=== PATIENT | male | born 2000 | race African-American/Black ===

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

== ENCOUNTER → 2020-01-20 | Outpatient (CLI) | payer OTHER ==
[2019-12-24 12:12] VITALS: BP 127/80
[~2020-01-20] MED LIST changes: +AMOX1TAB61 PO; +PRED20TA PO
[2020-01-20 11:03] LABS: BASO % 0 % (0-3); EOS # 0.2 x10^3/uL (0.0-0.7); EOS % 3 % (0-3); HEMATOCRIT 47.3 % (39.0-53.0); HEMOGLOBIN 15.6 g/dL (13.0-17.5); LYMPH # 1.8 x10^3/uL (1.0-4.8); LYMPH % 39 % (24-48); MEAN CORPUSCULAR HEMOGLOBIN 29 pg (25-35); MEAN CORPUSCULAR HGB CONC 33 g/dL (31-37); MEAN CORPUSCULAR VOLUME 89 fL (79-100); MONO # 0.4 x10^3/uL (0.0-1.1); MONO % 8 % (0-9); NEUT # 2.3 x10^3uL (1.8-7.7); NEUT % 49 % (31-73); PLATELET COUNT 170 x10^3/uL (140-400); RED CELL DISTRIBUTION WIDTH 12.9 % (11.5-14.5); WHITE BLOOD COUNT 4.7 x10^3/uL (4.0-11.0)
[2020-01-20 11:20] LABS: ALBUMIN 4.3 g/dL (3.4-5.0); ALBUMIN/GLOBULIN RATIO 1.2 (1.0-1.7); CALCIUM 9.2 mg/dL (8.5-10.1); CREATININE 1.1 mg/dL (0.7-1.3); GFR 104.3; POTASSIUM 3.9 mmol/L (3.5-5.1); TOTAL BILIRUBIN 0.6 mg/dL (0.2-1.0); TOTAL PROTEIN 7.9 g/dL (6.4-8.2)
--- NOTE | 2020-01-20 11:37 | RAD ---
EXAM: Abdomen sonogram. HISTORY: Pain. TECHNIQUE: Sonographic imaging of the abdomen was performed. COMPARISON: None. FINDINGS: The liver is normal in size. No focal hepatic lesion is seen. The common bile duct is normal in caliber. The gallbladder is unremarkable. The right kidney, inferior vena cava and visualized portions of the pancreas are unremarkable. There is no free fluid. IMPRESSION: 1. No acute sonographic finding. 2. Limited evaluation of the midline structures due to bowel gas. Electronically signed by: Gali Doyle MD (01/20/2020 11:34 AM) [id number]
[2020-01-20 13:25] LABS: BACTERIA,URINE 0 /HPF (0-FEW); BILIRUBIN,URINE NEG (NEG); CLARITY,URINE CLEAR; COLOR,URINE YELLOW; GLUCOSE,URINE NEG (NEG); NITRITE,URINE NEG (NEG); RBC,URINE 0 /HPF (0-2); WBC,URINE OCC /HPF (0-4)
== END ==
LOC: LAB 10:00
PROVIDERS: ATTEND Pediatrics
DX: R10.11 Right upper quadrant pain (principal)
CPT/HCPCS: 36415; 76705; 80053; 81001; 82150; 83690; 85025

== ENCOUNTER → 2020-02-08 | Outpatient (CLI) | payer OTHER ==
--- NOTE | 2020-02-08 15:32 | RAD ---
KNEE RIGHT 3V, RIGHT FEMUR XRAY DATE: 02/08/2020 12:00 AM INDICATION: LEG PAIN, COUCH FELL ON 02/04/20 / Spl. Instructions: / History: COMPARISON: None. FINDINGS: Bones: There is no evidence of acute fracture or dislocation. Joints: The joint spaces are normal. There is no joint effusion. Miscellaneous: None. IMPRESSION: No evidence of acute fracture. Electronically signed by: Sanya Russ MD (02/08/2020 3:28 PM) [id number]
== END ==
LOC: DXRAD 14:30
PROVIDERS: ATTEND Pediatrics
DX: M25.561 Pain in right knee (principal); W19.XXXA Unspecified fall, initial encounter; Y93.89 Activity, other specified; Y92.89 Other specified places as the place of occurrence of the external cause; Y99.8 Other external cause status
CPT/HCPCS: 73552; 73562

== ENCOUNTER 2020-02-10 16:00 | Emergency (ER) | payer OTHER ==
[~2020-02-10] VITALS: Ht 170.2 cm; Wt 64.0 kg
[2020-02-10 16:12] VITALS: BP 116/89
--- NOTE | 2020-02-10 16:41 | RAD ---
Exam: Right femur 2 views. Pelvis one view INDICATION: Right-sided pain TECHNIQUE: Frontal and lateral views of the right femur. Frontal view of the pelvis Comparisons: None FINDINGS: Femur: Bone mineralization is normal. No acute or healed fractures. Soft tissues are unremarkable. Joint spaces are well-maintained. Pelvis: Bone mineralization is normal. No acute or healed fractures. Soft tissues are unremarkable. Joint spaces are well-maintained. IMPRESSION: No acute osseous abnormality of the pelvis and right femur. Electronically signed by: Zachary Fowler MD (02/10/2020 4:38 PM) CHRISTIE
--- NOTE | 2020-02-10 16:44 | RAD ---
Exam: Chest one view INDICATION: Right thigh pain TECHNIQUE: Frontal view of the chest Comparisons: None FINDINGS: The cardiomediastinal silhouette and pulmonary vessels are within normal limits. The lung and pleural spaces are clear. IMPRESSION: No acute cardiopulmonary process. Electronically signed by: Zachary Fowler MD (02/10/2020 4:41 PM) CHRISTIE
--- NOTE | 2020-02-10 16:54 | RAD ---
Exam: CT head and cervical spine without contrast INDICATION: Headache, neck pain TECHNIQUE: Sequential axial images through the head and cervical spine were obtained without the administration of IV contrast. Comparisons: 10/24/2018 FINDINGS: Head: No focal parenchymal lesion or hemorrhage is identified. There is no midline shift or sulcal effacement. No acute vascular territory infarction is identified. Garcia-white distinction is preserved. The ventricular system is within normal limits without compression hydrocephalus. The basal cisterns are well maintained. The visualized portions of the paranasal sinuses and mastoid air cells are well-pneumatized. No acute fractures. Cervical spine: Vertebral body heights and alignment are well-maintained. Fracture to the cervical spine is not identified. No significant spondylotic change in cervical spine Visualized paraspinal soft tissues are unremarkable. IMPRESSION: 1. No acute intracranial abnormality. 2. Negative CT traumatic injury. Exposure: One or more of the following in the visualized dose reduction techniques were utilized for this examination: 1. Automated exposure control 2. Adjustment of the MA and/or KV according to patient size Use of iterative of reconstructive technique Electronically signed by: Zachary Fowler MD (02/10/2020 4:51 PM) BRIELLE
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
== END 2020-02-10 17:40 | disposition home or self-care (01) ==
LOC: ER 16:00
DX: M54.2 Cervicalgia (principal); M79.652 Pain in left thigh; J45.909 Unspecified asthma, uncomplicated; Y08.89XA Assault by other specified means, initial encounter; Y93.89 Activity, other specified; Y92.89 Other specified places as the place of occurrence of the external cause; Y99.8 Other external cause status
CPT/HCPCS: 70450; 71045; 72125; 72170; 73552; 99285

== ENCOUNTER 2020-02-27 20:08 | Emergency (ER) | payer OTHER ==
[~2020-02-27] VITALS: Ht 170.2 cm; Wt 64.0 kg
[2020-02-27 20:13] VITALS: BP 121/67
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
[2020-02-27] MEDS ORDERED: LORazepam 1 MG TABLET PO ONE (20:45)
== END 2020-02-27 21:31 | disposition home or self-care (01) ==
LOC: ER 20:08
DX: F41.9 Anxiety disorder, unspecified (principal); J45.909 Unspecified asthma, uncomplicated
CPT/HCPCS: 99283

== ENCOUNTER 2020-03-11 09:55 | Emergency (ER) | payer OTHER ==
[~2020-03-11] VITALS: Ht 170.2 cm; Wt 64.0 kg
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
--- NOTE | 2020-03-11 10:11 | EKG ---
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
[2020-03-11 10:24] VITALS: BP 134/63
[2020-03-11 10:33] LABS: BASO % 1 % (0-3); EOS # 0.2 x10^3/uL (0.0-0.7); EOS % 5 % (0-3); HEMATOCRIT 44.5 % (39.0-53.0); HEMOGLOBIN 14.7 g/dL (13.0-17.5); LYMPH # 1.4 x10^3/uL (1.0-4.8); LYMPH % 34 % (24-48); MEAN CORPUSCULAR HEMOGLOBIN 29 pg (25-35); MEAN CORPUSCULAR HGB CONC 33 g/dL (31-37); MEAN CORPUSCULAR VOLUME 89 fL (79-100); MONO # 0.3 x10^3/uL (0.0-1.1); MONO % 8 % (0-9); NEUT # 2.2 x10^3uL (1.8-7.7); NEUT % 53 % (31-73); PLATELET COUNT 148 x10^3/uL (140-400); RED BLOOD COUNT 5.03 x10^6/uL (4.30-5.70); RED CELL DISTRIBUTION WIDTH 13.2 % (11.5-14.5); WHITE BLOOD COUNT 4.1 x10^3/uL (4.0-11.0)
[2020-03-11 10:42] LABS: CALCIUM 8.8 mg/dL (8.5-10.1); CREATININE 0.9 mg/dL (0.7-1.3); GFR 131.5; MAGNESIUM 2.2 mg/dL (1.8-2.4); POTASSIUM 3.9 mmol/L (3.5-5.1)
== END 2020-03-11 13:03 | disposition home or self-care (01) ==
LOC: ER 09:55
DX: G40.909 Epilepsy, unspecified, not intractable, without status epilepticus (principal); R20.2 Paresthesia of skin; J45.909 Unspecified asthma, uncomplicated; Z98.890 Other specified postprocedural states
CPT/HCPCS: 36415; 80048; 83735; 85025; 93005; 99284

== ENCOUNTER 2020-03-13 16:49 | Emergency (ER) | payer OTHER ==
[~2020-03-13] VITALS: Ht 172.7 cm; Wt 63.0 kg
[2020-03-13 16:56] VITALS: BP 122/59
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
[2020-03-13] MEDS ORDERED: ONDA4TAB7 PO (17:56)
[2020-03-13] MEDS ORDERED: ONDANSETRON PF 4 MG/2 ML VIAL. IVP ONE (18:00)
[2020-03-13] MEDS ORDERED: ONDANSETRON ODT 4 MG TAB.RAPDIS PO ONE (18:00)
[2020-03-13] MEDS ORDERED: LIDO:MAALOX 1:1 20 ML SINGLE DOSE. PO ONE (18:00)
== END 2020-03-13 18:05 | disposition home or self-care (01) ==
LOC: ER 16:49
DX: R56.9 Unspecified convulsions (principal); R10.9 Unspecified abdominal pain; R11.0 Nausea; Z98.890 Other specified postprocedural states
CPT/HCPCS: 99283

== ENCOUNTER 2020-03-14 19:27 | Emergency (ER) | payer OTHER ==
[~2020-03-14] VITALS: Ht 172.7 cm; Wt 63.0 kg
[~2020-03-14 19:27] MED LIST changes: +ONDA4TAB7 PO
--- NOTE | 2020-03-14 19:44 | PHYS DOC ---
Past History Past Medical History: Seizure Additional Past Medical Histor: "STRESS", SEIZURE Past Surgical History: Other Additional Past Surgical Histo: BELLY BUTTON SURGERY Smoking: Non-smoker Alcohol Use: None Drug Use: None Adult General HPI HPI Patient is a 19-year-old male who presents to the emergency room after possible reported seizure activity. Patient is a very poor historian. He has no idea when he started having seizure-like activity or if he has seen a neurologist for this. He does believe that he supposed to see a neurologist but does not know when or who recommended that he see a neurologist. Patient believes that this problem started yesterday. He states that he was very upset and had to walk away from his family to calm down. When he returned to the home he was confused and not answering questions. They believe that this was due to his seizure and sent him here. Patient also reportedly has not had anything to eat or drink for the last 12 hours. He had an initial glucose of 50. He did receive glucose in route. Patient denies any drug use. Review of Systems Review of Systems Complete ROS is negative unless otherwise documented in HPI Allergies Allergies Allergies Coded Allergies Type Severity Reaction Last Updated Verified No Known Drug Allergies 03/13/20 No Physical Exam Physical Exam General: Awake, alert, NAD. Well Nourished, well hydrated. Cooperative HEENT: Atraumatic, EOMI, PERRL, airway patent, moist oral mucosa Neck: Supple, trachea midline Respiratory: CTA bilaterally, normal effort, no wheezing/crackles CV: RRR, no murmur, cap refill <2 GI: Soft, nondistended, nontender, no masses MSK: No obvious deformities Skin: Warm, dry, intact Neuro: A&O x3,, mild confusion, speech NL, 5/5 strength in BUE/BLE distally and proximally, CN 2-12 intact, cerebellar testing normal Psych: Normal affect, normal mood, not suicidal or homicidal EKG EKG [] Radiology/Procedures Radiology/Procedures [] Heart Score Risk Factors: Risk Factors: DM, Current or recent (<one month) smoker, HTN, HLP, family history of CAD, obesity. Risk Scores: Risk Factors: DM, Current or recent (<one month) smoker, HTN, HLP, family history of CAD, obesity. Course & Med Decision Making Course & Med Decision Making Pertinent Labs and Imaging studies reviewed. (See chart for details) Patient is a 19-year-old male who presents to the emergency room after having a possible seizure. No but he reportedly saw the seizure. He has not had any seizure-like activity today. Family called because he was acting as he may have had a seizure before he came home. Patient was hypoglycemic prior to arrival. He will be fed here in the emergency room. He has been evaluated multiple times here in this emergency room for similar episodes. He has not yet followed up with a neurologist which I have recommended to him and his family. At this time patient does not need repeat lab work or a CT of his head. He has had this work-up done previously that has been normal. Patient was observed here in the emergency room did not have any further seizure activity. Patient's test results and vitals while in the ED were fully reviewed and discussed with the patient. Patient is stable and at this time does not need admission to the hospital. We have discussed strict return precautions and the importance of following up with their Primary Care Physician. Patient stated understanding and was given an opportunity to ask any questions. Patient is in agreement with plan. Dragon Disclaimer Dragon Disclaimer This electronic medical record was generated, in whole or in part, using a voice recognition dictation system. Departure Departure: Impression: Primary Impression: Seizure-like activity Additional Impression: Mental status change Disposition: 01 DC HOME SELF CARE/HOMELESS Condition: STABLE Referrals: PCPELIZABETH (PCP) SRAVANI VEGA MD Patient Instructions: Hypoglycemia (Low Blood Sugar), Seizure, Adult Problem Qualifiers SENIA HERNÁNDEZ MD Mar 14, 2020 19:44
[2020-03-14 20:59] VITALS: BP 116/59
== END 2020-03-14 20:50 | disposition home or self-care (01) ==
LOC: ER 19:27
DX: R56.9 Unspecified convulsions (principal); R41.0 Disorientation, unspecified
CPT/HCPCS: 82947; 99283

== ENCOUNTER 2020-03-17 22:31 | Emergency (ER) | payer OTHER ==
[~2020-03-17] VITALS: Ht 172.7 cm; Wt 62.7 kg
--- NOTE | 2020-03-17 22:35 | PHYS DOC ---
Past History Past Medical History: Anxiety, Constipation, Seizure Additional Past Medical Histor: "STRESS", SEIZURE Past Surgical History: Other Additional Past Surgical Histo: BELLY BUTTON SURGERY Smoking: Non-smoker Alcohol Use: None Drug Use: None General Adult HPI: HPI: ".. I had a seizure..." Patient is a 19 year old male who presents with above hx and complaints of seizure like activity. Patient reportedly had a tonic-clonic seizure and a prolonged post ictal phase. Patient has had previous episodes of syncope/seizure and working with a neurologist for a med treatment program. Patient currently has no complaints. Does have previous seizure evaluations in our department one episode he was hypoglycemic below 50 and another episode he was dehydrated. Patient does have a history of developmental intellectual delay. Patient also has history of possible stress-induced seizures or an emotional component that causes her to have seizure-like activity. Patient had not been incontinent of urine or stool. Has not bit his tongue. No other injuries. No other complaints. There is some history of possible pseudoseizures in his record. Patient past follow-up with Dr. Man. No history immunosuppression. No history of travel. No specific ill contacts. Review of Systems: Review of Systems: Constitutional: Denies fever or chills Eyes: Denies change in visual acuity HENT: Denies nasal congestion or sore throat Respiratory: Denies cough or shortness of breath Cardiovascular: Denies chest pain or edema GI: Denies abdominal pain, nausea, vomiting, bloody stools or diarrhea : Denies dysuria Musculoskeletal: Denies back pain or joint pain Integument: Denies rash Neurologic: Denies headache, focal weakness or sensory changes . History of seizure-like activity Endocrine: Denies polyuria or polydipsia Lymphatic: Denies swollen glands Psychiatric: Denies depression or anxiety Family History: Family History: Noncontributory to presentation Current Medications: Current Meds: See nursing for home meds Allergies: Allergies: Allergies Coded Allergies Type Severity Reaction Last Updated Verified No Known Drug Allergies 03/13/20 No Physical Exam: PE: Constitutional: Well developed, well nourished, no acute distress, non-toxic appearance. [] HENT: Normocephalic, atraumatic, bilateral external ears normal, oropharynx moist, no oral exudates, nose normal. [] Eyes: PERRLA, EOMI, conjunctiva normal, no discharge. [] Neck: Normal range of motion, no tenderness, supple, no stridor. [] Cardiovascular:Heart rate regular rhythm, no murmur [] Lungs & Thorax: Bilateral breath sounds clear to auscultation [] Abdomen: Bowel sounds normal, soft, no tenderness, no masses, no pulsatile masses. Surgical scar mid abdomen-umbilicus area Skin: Warm, dry, no erythema, no rash. [] Back: No tenderness, no CVA tenderness. [] Extremities: No tenderness, no cyanosis, no clubbing, ROM intact, no edema. [] Neurologic: Alert and oriented X 3, normal motor function, normal sensory function, no focal deficits noted. [] DTRs +2 patella and brachial. Multimedia Services Manager equal. No drift. Sxzzfu-io-jutz good. Psychologic: Affect flat, appears to have some intellectual disabilities, mood normal. [] EKG: EKG: My interpretation EKG shows a sinus bradycardia at 59 bpm. No acute morphology [] Radiology/Procedures: Radiology/Procedures: [][address] [address] IMAGING REPORT Signed PATIENT: CRISTIAN ALVARADO RACCOUNT: [id number] : 2000 LOCATION: ER AGE: 19 SEX: M EXAM STATUS: REG ER ORD. PHYSICIAN: ELBA NOVOA MD REASON: Seizure activity, weakness PROCEDURE: PORTABLE CHEST 1V Single view chest dated 03/17/2020. Comparison made to 02/10/2020. Clinical data indication: Seizure. FINDINGS: Single upright portable exam performed. Heart and mediastinal contours are sta ble. Lungs are clear. No consolidation or pleural effusion. No pneumothorax. IMPRESSION: No acute radiographic abnormality. Electronically signed by: Frank Myers MD (03/17/2020 11:10 PM) [facility] [place] DICTATED AND SIGNED BY: FRANK MYERS MD DATE: 03/17/20 [id number] CC: ELBA NOVOA MD; PCP,NO ~MTH0 0 Heart Score: HEART Score for Chest Pain: HEART Score for Chest Pain Response (Comments) Value History Slighlty/Non-Suspicious 0 ECG Normal 0 Age < 45 0 Risk Factors No Risk Factors 0 Troponin < Normal Limit 0 Total 0 Risk Factors: Risk Factors: DM, Current or recent (<one month) smoker, HTN, HLP, family history of CAD, obesity. Risk Scores: Score 0 - 3: 2.5% MACE over next 6 weeks - Discharge Home Score 4 - 6: 20.3% MACE over next 6 weeks - Admit for Clinical Observation Score 7 - 10: 72.7% MACE over next 6 weeks - Early Invasive Strategies Course & Med Decision Making: Course & Med Decision Making Pertinent Labs and Imaging studies reviewed. (See chart for details) Patient to avoid driving or any hazardous activity where he could become injured with a seizure. Keep follow-up with primary. Keep follow-up with neurology. Return if any concerns. Push fluids. Impression:. 1. Seizure-like activity 2. Developmentally intellectual delay 3. Bradycardia [] Dragon Disclaimer: Dragon Disclaimer: This electronic medical record was generated, in whole or in part, using a voice recognition dictation system. Departure Departure: Referrals: PCP,NO (PCP) Dragon Disclaimer This chart was dictated in whole or in part using Voice Recognition software in a busy, high-work load, and often noisy Emergency Department environment. It may contain unintended and wholly unrecognized errors or omissions. Dragon Disclaimer This chart was dictated in whole or in part using Voice Recognition software in a busy, high-work load, and often noisy Emergency Department environment. It may contain unintended and wholly unrecognized errors or omissions. ELBA NOVOA MD Mar 17, 2020 22:35
[2020-03-17] MEDS ORDERED: IV RINGERS SOLUTION,LACTATED 1,000 ML IV SCH (22:45)
[2020-03-17 23:10] LABS: BASO # 0.1 x10^3/uL (0.0-0.2); BASO % 1 % (0-3); EOS # 0.4 x10^3/uL (0.0-0.7); EOS % 5 % (0-3); HEMATOCRIT 44.4 % (39.0-53.0); HEMOGLOBIN 14.7 g/dL (13.0-17.5); LYMPH # 3.6 x10^3/uL (1.0-4.8); LYMPH % 44 % (24-48); MEAN CORPUSCULAR HEMOGLOBIN 29 pg (25-35); MEAN CORPUSCULAR HGB CONC 33 g/dL (31-37); MEAN CORPUSCULAR VOLUME 89 fL (79-100); MONO # 0.5 x10^3/uL (0.0-1.1); MONO % 6 % (0-9); NEUT # 3.5 x10^3uL (1.8-7.7); NEUT % 44 % (31-73); PLATELET COUNT 163 x10^3/uL (140-400); RED BLOOD COUNT 5.01 x10^6/uL (4.30-5.70); WHITE BLOOD COUNT 8.1 x10^3/uL (4.0-11.0)
--- NOTE | 2020-03-17 23:12 | RAD ---
Single view chest dated 03/17/2020. Comparison made to 02/10/2020. Clinical data indication: Seizure. FINDINGS: Single upright portable exam performed. Heart and mediastinal contours are stable. Lungs are clear. N o consolidation or pleural effusion. No pneumothorax. IMPRESSION: No acute radiographic abnormality. Electronically signed by: Darius Myers MD (03/17/2020 11:10 PM) [facility]
[2020-03-17 23:17] LABS: CALCIUM 9.1 mg/dL (8.5-10.1); CREATININE 1.2 mg/dL (0.7-1.3); GFR 94.4; POTASSIUM 3.5 mmol/L (3.5-5.1)
[2020-03-17 23:23] LABS: DIRECT BILIRUBIN 0.1 mg/dL (0.0-0.2); MAGNESIUM 2.5 mg/dL (1.8-2.4); TOTAL BILIRUBIN 0.2 mg/dL (0.2-1.0); TOTAL PROTEIN 7.3 g/dL (6.4-8.2)
[2020-03-17 23:37] VITALS: BP 117/78
[2020-03-18 00:15] LABS: BARBITURATES NEG (NEG); BENZODIAZEPINES NEG (NEG); CANNABINOIDS NEG (NEG); COCAINE NEG (NEG); METHADONE NEG (NEG); OPIATES NEG (NEG); PHENCYCLIDINE NEG (NEG)
[2020-03-18 00:17] LABS: AMPHETAMINE/METHAMPHETAMINE NEG (NEG)
--- NOTE | 2020-03-18 04:13 | EKG ---
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
== END 2020-03-17 23:53 | disposition home or self-care (01) ==
LOC: ER 22:31
DX: G40.89 Other seizures (principal); F81.9 Developmental disorder of scholastic skills, unspecified; R00.1 Bradycardia, unspecified; F41.9 Anxiety disorder, unspecified
CPT/HCPCS: 36415; 71045; 80048; 80076; 80307; 82550; 82947; 83735; 84484; 85025; 93005; 96361; 96374; 99285; J2060; J7120

== ENCOUNTER 2020-03-18 11:50 | Emergency (ER) | payer OTHER ==
[~2020-03-18] VITALS: Ht 172.7 cm; Wt 62.7 kg
--- NOTE | 2020-03-18 13:36 | PHYS DOC ---
Past History Past Medical History: Anxiety, Constipation, Seizure Additional Past Medical Histor: "STRESS", SEIZURE Past Surgical History: Other Additional Past Surgical Histo: BELLY BUTTON SURGERY Smoking: Non-smoker Alcohol Use: None Drug Use: None Adult General Chief Complaint Chief Complaint: SEIZURE HPI HPI Patient is a 19-year-old male presents emergency department reporting that he marte d 3 seizures today just prior to arrival, patient states that he remembers being at home at approximately 11:00 today and he started shaking for approximately 1 minute and states that he got himself out of it then again he started shaking uncontrollably once again for approximately 1 minute and then again he states that he pulled himself back out of his shaking episode. Patient states that his stepmom called EMS to transfer him here to the emergency department for seizures, and when EMS arrived and started questioning him about his seizures that he started shaking once again uncontrollably but was able to pull himself back out of it once again. Patient was transferred to the emergency department via EMS. Patient's blood sugar in route reported by EMS optical designer was 58. Patient states that he is awaiting an appointment from a neurologist at [facility]. Patient states that the neurology office is supposed to call him for an appointment but has not done so yet. Patient denies any loss of bowel or bladder. Patient denies biting his tongue or his lip during his seizure. Patient denies falling or hitting his head during his seizure activity. Patient denies any other aches or pains, denies recent fever or chills, denies chest pain, denies back pain, denies chest palpitations, denies shortness of breath, denies congestion. Patient denies rashes to his skin. Patient denies nausea vomiting or abdominal pain patient denies loss of sensation to his extremities, denies numbness or tingling to his extremities. Patient denies abdominal pains, denies urinary tract infection type symptoms. Patient denies being in any prolonged postictal phase after his seizures, stating that he was able to pull himself back out of his seizure before he made it to a postictal state. Patient denies a history of cigarette smoking, denies drinking alcohol, denies illicit drug use. Patient does have a history of developmental intellectual delay, patient has been evaluated in the emergency department several times this month for seizure- like activity, patient has been encouraged to follow-up with neurology however has not followed up with neurology as of this time. 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 Patient patient has been evaluated by Dr. Man in the past, patient denies any recent travel, or any contact with individuals known to have the COVID-19 virus or other illnesses patient denies any past medical history of immunosuppression or immunosuppressive type diseases. Patient reports a past surgical history of an umbilical hernia repair when he was younger. Review of Systems Review of Systems 14 body systems of review of systems have been reviewed. See HPI for pertinent positives and negative responses, otherwise all other systems are negative, nonpertinent or noncontributory. Current Medications Current Medications Patient denies taking medications at home. Allergies Allergies Allergies Coded Allergies Type Severity Reaction Last Updated Verified No Known Drug Allergies 03/13/20 No Physical Exam Physical Exam Constitutional: Well developed, well nourished, no acute distress, non-toxic appearance. HENT: Normocephalic, atraumatic, bilateral external ears normal, oropharynx moist, no oral exudates, nose normal. Eyes: PERRLA, EOMI, conjunctiva normal, no discharge. Neck: Normal range of motion, no tenderness, supple, no stridor. Cardiovascular:Heart rate regular rhythm, no murmur Lungs & Thorax: Bilateral breath sounds clear to auscultation Abdomen: Bowel sounds normal, soft, no tenderness, no masses, no pulsatile masses. Umbilical surgical repair scar well-healed without signs of inflammation or infectious process Skin: Warm, dry, no erythema, no rash. Back: No tenderness, no CVA tenderness. Extremities: No tenderness, no cyanosis, no clubbing, ROM intact, no edema. Neurologic: Alert and oriented X 3, normal motor function, normal sensory function, no focal deficits noted. Psychologic: Patient's mood normal, affect flat, signs of intellectual developmental delay. Current Patient Data Vital Signs Vital signs during physical exam oral temp 97.8, NIBP blood pressure left upper extremity 115/56, heart rate 72 per palpation and confirmed with 5-lead bedside telemetry monitor, respirations 14 and nonlabored, oxygen saturation 100% on room air. Lab Results Laboratory Tests Test 03/18/20 12:00 03/18/20 13:40 Glucose (Fingerstick) 81 mg/dL 143 mg/dL Laboratory Tests Test 03/18/20 12:00 Glucose (Fingerstick) 81 mg/dL (70-99) EKG EKG [] Radiology/Procedures Radiology/Procedures [] Heart Score Risk Factors: Risk Factors: DM, Current or recent (<one month) smoker, HTN, HLP, family history of CAD, obesity. Risk Scores: Risk Factors: DM, Current or recent (<one month) smoker, HTN, HLP, family history of CAD, obesity. Course & Med Decision Making Course & Med Decision Making Pertinent Labs and Imaging studies reviewed. (See chart for details) 19-year-old male presents emergency department with chief complaint of seizure- like activity. Patient reported to me that he had 4 seizures before arrival to the emergency department, however EMS reported that he reported to them that he had 7 seizures today prior to them arriving further evaluation and transfer to the emergency department today. Patient was not postictal during physical exam, the patient has been seen in our facility for seizure-like activity for previous times this month. A chart review was performed, the patient denied being on any seizure medicines, however it was noted on previous admissions to the emergency department this month that he was loaded on Keppra and started on Lamictal. He has had events imaging of his head that was negative for acute process, has been recommended to both him and his family that he follow-up with a neurologist, he has not done this as of this time. His previous work-ups have been have been normal, the patient was observed here for approximately 3-1/2 hours and did not exhibit any seizure-like activity or other concerning neurological processes, vital signs remained stable throughout emergency department stay. The patient's initial blood sugar in route was 58 per EMS report, however ED nurse performed 1 upon arrival reading 81. The patient was given a meal tray to eat, and a recheck of glucose at bedside [id number] blood sugar equaled 143. Patient's physical exam was nonconcerning and does not meet admission to the hospital. Discussed with both patient and patient's stepmother that the patient needs to have an appointment with neurology. Both patient and patient's stepmother gave verbal understanding of discharge instructions, follow-up with neurology soon. Patient is agreeable with discharge to home. Patient discharged home without incident Dragon Disclaimer Dragon Disclaimer This electronic medical record was generated, in whole or in part, using a voice recognition dictation system. Departure Departure: Impression: Primary Impression: Seizure-like activity Disposition: 01 DC HOME SELF CARE/HOMELESS Condition: GOOD Referrals: PCP,NO (PCP) Additional Instructions: You have been evaluated in the emergency department several times for seizure- like activity, we have recommended that you see a neurologist soon. Please make appointment to see neurology soon for evaluation of your seizure-like activity. Please return the emergency department for worsening symptoms or other concerns. EMERGENCY DEPARTMENT GENERAL DISCHARGE INSTRUCTIONS Thank you for coming to [facility] (ED) today and trusting us with you care. We trust that you had a positivie experience in our Emergency Department. If you wish to speak to the department management, you may call the director at [phone]. YOUR FOLLOW UP INSTRUCTIONS ARE FOLLOWS: 1. Do you have a private Doctor? If you do not have a private doctor, please ask for a resource list of physicians or clinics that may be able to assist you with follow up care. 2. The Emergency Physician has interpreted your x-rays. The X-Ray specialist will also review them. If there is a change in the findings, you will be notified in 48 hours when at all possible. 3. A lab test or culture has been done, your results will be reviewed and you will be notified if you need a change in treatment. ADDITIONAL INSTRUCTIONS AND INFORMATION: 1. Your care today has been supervised by a physician who is specially trained in emergency care. Many problems require more than one evaluation for a complete diagnosis and treatment. We recommend that you schedule your follow up appointment as recommended to ensure complete treatment of you illness or injury. If you are unable to obtain follow up care and continue to have a problem, or if your condition worsens, we recommend that you return to the ED. 2. We are not able to safely determine your condition over the phone nor are we able to give sound medical advice over the phone. For these safety reasons, if you call for medical advice we will ask you to come to the ED for further evaluation. 3. If you have any questions regarding these discharge instructions please call the ED at [phone]. SAFETY INFORMATION: In the interest of safety, wellness, and injury prevention; we encourage you to wear your sealbelt, if you smoke; quite smoking, and we encourage family to use a protective helmet for bicycling and other sporting events that present an increased risk for head injury. IF YOUR SYMPTOMS WORSEN OR NEW SYMPTOMS DEVELOP, OR YOU HAVE CONCERNS ABOUT YOUR CONDITION; OR IF YOUR CONDITION WORSENS WHILE YOU ARE WAITING FOR YOUR FOLLOW UP APPOINTMENT; EITHER CONTACT YOUR PRIMARY CARE DOCTOR, THE PHYSICIAN WHOSE NAME AND NUMBER YOU WERE GIVEN, OR RETURN TO THE ED IMMEDIATELY. FRANK GALLEGOS APRN Mar 18, 2020 13:36
[2020-03-18 14:54] VITALS: BP 103/45
== END 2020-03-18 15:30 | disposition home or self-care (01) ==
LOC: ER 11:50
DX: R56.9 Unspecified convulsions (principal); R62.50 Unspecified lack of expected normal physiological development in childhood; F41.9 Anxiety disorder, unspecified
CPT/HCPCS: 82947; 99285

== ENCOUNTER 2020-03-18 20:52 | Emergency (ER) | payer OTHER ==
[~2020-03-18] VITALS: Ht 172.7 cm; Wt 62.7 kg
--- NOTE | 2020-03-18 21:06 | PHYS DOC ---
Past History Past Medical History: Anxiety, Constipation, Seizure Additional Past Medical Histor: "STRESS", SEIZURE Past Medical History Intellectual delay Past Surgical History: Other Additional Past Surgical Histo: BELLY BUTTON SURGERY Smoking: Non-smoker Alcohol Use: None Drug Use: None General Adult EDM: Chief Complaint: OTHER COMPLAINTS HPI: HPI: "I had another seizure..." Pt "He had another seizure.. it lasted over 15 minutes.. he was seen at [facility]....and they never found out why... he been to the ED a lot.. they never found anything other than he had a low sugar once and once was dehydrated.. He seen Dr. Hudson before.. and now he has an apt. with Dr Cade.. " "You espinoza s never find out why he has those seizures".. ( Codi Washington- mother [phone]. ) Patient is a 19 year old male who presents with hx of tonic clonic seizure for 15 minutes at home per mother. . Patient has been seen multiple times in the emergency department for [place] visits on February 26, March 11, March 13, March 14, March 17, March 18 x3. For seizure-like activity. Patient reportedly has had multiple episodes of syncope/seizure-like activity for the last several years. Patient was evaluated by neurology at [facility] but no specific diagnosis found per mother. Patient has had previous pseudoseizure evaluations are apparent one episode did have a hypoglycemic reading of 50 and another episode he was dehydrated. Patient does have a history of developmental intellectual delay. Patient has history of possible stress-induced seizures or seizures that have an emotional component with him. [place] he presents for reevaluation for seizure-like activity this is his third visit today. He has not had any incontinence of urine or stool. Diabetes tongue. No other injuries. Reportedly per mother she watched him have a tonic- clonic seizure for in excess of 15 minutes by the clock. Mother states that she did not check his pulse but he seemed to be having problems breathing and is why she called the ambulance again tonnoreen. Patient does have episodes of possible pseudoseizures on his record patient in the past follow-up with Dr. Man. No history of immunosuppression. No recent travel. No specific ill contacts. Patient is not on any current seizure meds has followed with Dr. Hudson-neurology locally. Patient does have a possible scheduled appointment with Dr. Cade neurology on Friday at [facility]. Patient currently follows with Dr. Saini for medical issues. Review of Systems: Review of Systems: Constitutional: Denies fever or chills Eyes: Denies change in visual acuity HENT: Denies nasal congestion or sore throat Respiratory: Denies cough or shortness of breath Cardiovascular: Denies chest pain or edema GI: Denies abdominal pain, nausea, vomiting, bloody stools or diarrhea : Denies dysuria Musculoskeletal: Denies back pain or joint pain Integument: Denies rash Neurologic: Denies headache, focal weakness or sensory changes . Complains he had a seizure prior to arrival. Endocrine: Denies polyuria or polydipsia Lymphatic: Denies swollen glands Psychiatric: Denies depression or anxiety Family History: Family History: Noncontributory to presentation Current Medications: Current Meds: See nursing for home meds Allergies: Allergies: Allergies Coded Allergies Type Severity Reaction Last Updated Verified No Known Drug Allergies 03/13/20 No Physical Exam: PE: Constitutional: Well developed, well nourished, no acute distress, non-toxic appearance. [] HENT: Normocephalic, atraumatic, bilateral external ears normal, oropharynx moist, no oral exudates, nose normal. No injuries to tongue. Eyes: PERRLA, EOMI, conjunctiva normal, no discharge. [] Neck: Normal range of motion, no tenderness, supple, no stridor. [] Cardiovascular:Heart rate regular rhythm, no murmur [] Lungs & Thorax: Bilateral breath sounds equal at apex on auscultation [] Abdomen: Bowel sounds normal, soft, no tenderness, no masses, no pulsatile masses. Old surgical scar at umbilicus area. Did not soil himself or pass urine during the last seizure. Skin: Warm, dry, no erythema, no rash. [] Back: No tenderness, no CVA tenderness. [] Extremities: No tenderness, no cyanosis, no clubbing, ROM intact, no edema. [] Neurologic: Alert and oriented X 3, moves all extremities on request., distal sensory function, no focal deficits noted. DTRs +2 patella and brachial. Rent And Housing Investigator equal. No drift. Psychologic: Affect normal, judgement does appear to have some intellectual delay, mood normal. [] EKG: EKG: My interpretation EKG shows a sinus rhythm at 61 bpm. No acute morphology [] Radiology/Procedures: Radiology/Procedures: Reviewed prior chest x-rays and CTs [] Heart Score: HEART Score for Chest Pain: HEART Score for Chest Pain Response (Comments) Value History Slighlty/Non-Suspicious 0 ECG Normal 0 Age < 45 0 Risk Factors No Risk Factors 0 Troponin < Normal Limit 0 Total 0 Risk Factors: Risk Factors: DM, Current or recent (<one month) smoker, HTN, HLP, family history of CAD, obesity. Risk Scores: Score 0 - 3: 2.5% MACE over next 6 weeks - Discharge Home Score 4 - 6: 20.3% MACE over next 6 weeks - Admit for Clinical Observation Score 7 - 10: 72.7% MACE over next 6 weeks - Early Invasive Strategies Course & Med Decision Making: Course & Med Decision Making Pertinent Labs and Imaging studies reviewed. (See chart for details) Patient to continue to keep follow-up with Dr. Cade- neurology and [facility]. Asked mother to check patient's pulse on next seizure. Mother advised that the seizures may have a emotional component or secondary gain . Instructed mother to consider this as a contributing factor. Impression: 1. Seizure-like activity 2. History of developmental and intellectual delay [] Dragon Disclaimer: Dragon Disclaimer: This electronic medical record was generated, in whole or in part, using a voice recognition dictation system. Departure Departure: Referrals: PCP,NO (PCP) [place] Disclaimer This chart was dictated in whole or in part using Voice Recognition software in a busy, high-work load, and often noisy Emergency Department environment. It may contain unintended and wholly unrecognized errors or omissions. ELBA NOVOA MD Mar 18, 2020 21:06
[2020-03-18] MEDS ORDERED: IV RINGERS SOLUTION,LACTATED 1,000 ML IV ONE (21:30)
[2020-03-18 21:54] LABS: BASO # 0.1 x10^3/uL (0.0-0.2); BASO % 1 % (0-3); EOS # 0.3 x10^3/uL (0.0-0.7); EOS % 5 % (0-3); HEMATOCRIT 43.9 % (39.0-53.0); HEMOGLOBIN 14.6 g/dL (13.0-17.5); LYMPH # 2.4 x10^3/uL (1.0-4.8); LYMPH % 41 % (24-48); MEAN CORPUSCULAR HEMOGLOBIN 29 pg (25-35); MEAN CORPUSCULAR HGB CONC 33 g/dL (31-37); MEAN CORPUSCULAR VOLUME 88 fL (79-100); MONO # 0.4 x10^3/uL (0.0-1.1); MONO % 7 % (0-9); NEUT # 2.7 x10^3uL (1.8-7.7); NEUT % 46 % (31-73); PLATELET COUNT 166 x10^3/uL (140-400); RED CELL DISTRIBUTION WIDTH 13.2 % (11.5-14.5); WHITE BLOOD COUNT 5.9 x10^3/uL (4.0-11.0)
[2020-03-18 22:07] LABS: CALCIUM 8.8 mg/dL (8.5-10.1); CREATININE 1.2 mg/dL (0.7-1.3); GFR 94.4
[2020-03-19] VITALS: BP 121/68
--- NOTE | 2020-03-20 09:54 | EKG ---
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
== END 2020-03-19 00:17 | disposition home or self-care (01) ==
LOC: ER 20:52
DX: G40.89 Other seizures (principal); F81.9 Developmental disorder of scholastic skills, unspecified; F41.9 Anxiety disorder, unspecified
CPT/HCPCS: 36415; 80048; 82550; 84146; 84484; 85025; 93005; 96360; 99284; J7120

== ENCOUNTER 2020-04-06 18:41 | Emergency (ER) | payer OTHER ==
[~2020-04-06] VITALS: Ht 172.7 cm; Wt 62.7 kg
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
[2020-04-06 19:53] LABS: BASO % 1 % (0-3); EOS # 0.3 x10^3/uL (0.0-0.7); EOS % 4 % (0-3); HEMATOCRIT 44.4 % (39.0-53.0); LYMPH # 2.6 x10^3/uL (1.0-4.8); LYMPH % 40 % (24-48); MEAN CORPUSCULAR HEMOGLOBIN 30 pg (25-35); MEAN CORPUSCULAR HGB CONC 34 g/dL (31-37); MEAN CORPUSCULAR VOLUME 87 fL (79-100); MONO # 0.4 x10^3/uL (0.0-1.1); MONO % 7 % (0-9); NEUT # 3.1 x10^3uL (1.8-7.7); NEUT % 48 % (31-73); PLATELET COUNT 155 x10^3/uL (140-400); RED BLOOD COUNT 5.07 x10^6/uL (4.30-5.70); RED CELL DISTRIBUTION WIDTH 13.2 % (11.5-14.5); WHITE BLOOD COUNT 6.3 x10^3/uL (4.0-11.0)
[2020-04-06 19:55] LABS: GFR 116.5; POTASSIUM 3.9 mmol/L (3.5-5.1)
[2020-04-06 20:01] LABS: ALBUMIN 4.3 g/dL (3.4-5.0); ALBUMIN/GLOBULIN RATIO 1.3 (1.0-1.7); TOTAL BILIRUBIN 0.3 mg/dL (0.2-1.0); TOTAL PROTEIN 7.6 g/dL (6.4-8.2)
[2020-04-06 20:56] VITALS: BP 107/59
--- NOTE | 2020-04-10 10:13 | NUR ---
IP: patient notified of COVID result.
== END 2020-04-06 21:39 | disposition home or self-care (01) ==
LOC: ER 18:41
DX: R45.851 Suicidal ideations (principal); F32.9 Major depressive disorder, single episode, unspecified; F41.9 Anxiety disorder, unspecified; R62.50 Unspecified lack of expected normal physiological development in childhood; Z20.822 Contact with and (suspected) exposure to COVID-19
CPT/HCPCS: 36415; 80053; 85025; 87426; 99285; C9803; G0480; U0003

== ENCOUNTER 2020-05-05 21:59 | Emergency (ER) | payer OTHER ==
[~2020-05-05] VITALS: Ht 172.7 cm; Wt 62.7 kg
--- NOTE | 2020-05-05 22:20 | PHYS DOC ---
Past History Past Medical History: Anxiety, Constipation, Depression, D.U.B, Seizure Additional Past Medical Histor: "STRESS", SEIZURE, pseudo seizures Past Surgical History: Other Additional Past Surgical Histo: BELLY BUTTON SURGERY Smoking: Non-smoker Alcohol Use: None Drug Use: None General Adult EDM: Chief Complaint: SUICIDAL IDEATION HPI: HPI: "...I ve been thinking about killing myself.. maybe jump off bridge into river.. or stepping out in front of a car.. " Patient is a 19 year old male who presents with above hx and complaints depression, anxiety, and suicidal ideation. Patient denies any ingestion meds or oovy-itg-nmbvbzb meds. Patient states he has been depressed before but never to this extent. Does have a history of anxiety. Patient has history of se izure-like activity but no specific findings consistent with tonic-clonic seizures with multiple visits to the emergency department. Does have a history of developmental and intellectual delay. Has been evaluated by [facility], neurology here with Dr. Hudson, and Dr. Cade. In the past felt the tonic clonic activity were pseudoseizures or seizures that have an emotional component or for secondary gain. Patient normally follows withParvin Squires for care. Review of Systems: Review of Systems: Constitutional: Denies fever or chills Eyes: Denies change in visual acuity HENT: Denies nasal congestion or sore throat Respiratory: Denies cough or shortness of breath Cardiovascular: Denies chest pain or edema GI: Denies abdominal pain, nausea, vomiting, bloody stools or diarrhea : Denies dysuria Musculoskeletal: Denies back pain or joint pain Integument: Denies rash Neurologic: Denies headache, focal weakness or sensory changes Endocrine: Denies polyuria or polydipsia Lymphatic: Denies swollen glands Psychiatric: Complains of suicidal ideation, depression or anxiety Family History: Family History: Noncontributory to presentation Current Medications: Current Meds: See nursing for home meds Allergies: Allergies: Allergies Coded Allergies Type Severity Reaction Last Updated Verified No Known Drug Allergies 03/13/20 No Physical Exam: PE: Constitutional: Well developed, well nourished, no acute distress, non-toxic appearance. [] HENT: Normocephalic, atraumatic, bilateral external ears normal, oropharynx moist, no oral exudates, nose normal. [] Eyes: PERRLA, EOMI, conjunctiva normal, no discharge. [] Neck: Normal range of motion, no tenderness, supple, no stridor. [] Cardiovascular:Heart rate regular rhythm, no murmur [] Lungs & Thorax: Bilateral breath sounds equal apex on auscultation [] Abdomen: Bowel sounds normal, soft, no tenderness, no masses, no pulsatile mas ses. Circumcised male. Testicles descended Skin: Warm, dry, no erythema, no rash. [] Back: No tenderness, no CVA tenderness. [] Extremities: No tenderness, no cyanosis, no clubbing, ROM intact, no edema. [] Neurologic: Alert and oriented X 3, moves all extremities on request, has distal sensory, no focal deficits noted. [] Psychologic: Affect anxious, judgement normal, mood reports depression and laws icidal ideation EKG: EKG: My interpretation of EKG shows a sinus rhythm at 64 bpm. No acute morphology. [] Radiology/Procedures: Radiology/Procedures: [][address] [address] IMAGING REPORT Signed PATIENT: CRISTIAN ALVARADO RACCOUNT: [id number] : 2000 LOCATION: ER AGE: 19 SEX: M EXAM STATUS: PRE ER ORD. PHYSICIAN: ELBA NOVOA MD REASON: dyspnea PROCEDURE: PORTABLE CHEST 1V XR CHEST 1V Clinical History: Reason: dyspnea / Spl. Instructions: / History: Technique: AP view of the chest was obtained at 05/05/2020 10:58 PM. Comparison: March 17, 2020. Findings: The cardiomediastinal silhouette is normal. The pulmonary vasculature is normal. The lungs and pleural margins are clear. Impression: No evidence of an acute cardiopulmonary process. Electronically signed by: Jeremiah López III, MD (05/05/2020 11:16 PM) [facility] DICTATED AND SIGNED BY: JEREMIAH LÓPEZ III, MD DATE: 05/05/20 6172 CC: ELBA NOVOA MD; LUCIANO SQUIRES ~MTH0 0 Heart Score: HEART Score for Chest Pain: HEART Score for Chest Pain Response (Comments) Value History Slighlty/Non-Suspicious 0 ECG Normal 0 Age < 45 0 Risk Factors No Risk Factors 0 Troponin < Normal Limit 0 Total 0 Risk Factors: Risk Factors: DM, Current or recent (<one month) smoker, HTN, HLP, family history of CAD, obesity. Risk Scores: Score 0 - 3: 2.5% MACE over next 6 weeks - Discharge Home Score 4 - 6: 20.3% MACE over next 6 weeks - Admit for Clinical Observation Score 7 - 10: 72.7% MACE over next 6 weeks - Early Invasive Strategies Course & Med Decision Making: Course & Med Decision Making Pertinent Labs and Imaging studies reviewed. (See chart for details) See psych evaluation. Patient has a bed at [facility]. A waiting rapid Covid- 0120 hrs. for final placement. No result on rapid at 0400 . Lab called advised they did not run the rapid. Lab again advised we needed a rapid result so pt. did not loose his bed placement at [facility]. Pt. accepted at [facility]- Dr. Jacques awaiting transport 0500 hrs. Impression: 1. Suicidal ideation 2. Depression 3. Anxiety 4. History intellectual delay 5. History of developmental delay 6. 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 COVID Negative 05/06/2020 [] Dragon Disclaimer: Dragon Disclaimer: This electronic medical record was generated, in whole or in part, using a voice recognition dictation system. Departure Departure: Referrals: LUCIANO SQUIRES (PCP) Dragon Disclaimer This chart was dictated in whole or in part using Voice Recognition software in a busy, high-work load, and often noisy Emergency Department environment. It may contain unintended and wholly unrecognized errors or omissions. Dragon Disclaimer This chart was dictated in whole or in part using Voice Recognition software in a busy, high-work load, and often noisy Emergency Department environment. It may contain unintended and wholly unrecognized errors or omissions. Dragon Disclaimer This chart was dictated in whole or in part using Voice Recognition software in a busy, high-work load, and often noisy Emergency Department environment. It may contain unintended and wholly unrecognized errors or omissions. Dragon Disclaimer This chart was dictated in whole or in part using Voice Recognition software in a busy, high-work load, and often noisy Emergency Department environment. It may contain unintended and wholly unrecognized errors or omissions. ELBA NOVOA MD May 05, 2020 22:20
[2020-05-05] MEDS ORDERED: IV RINGERS SOLUTION,LACTATED 1,000 ML IV SCH (22:30)
[2020-05-05 22:39] LABS: BASO # 0.1 x10^3/uL (0.0-0.2); BASO % 1 % (0-3); EOS # 0.1 x10^3/uL (0.0-0.7); EOS % 1 % (0-3); HEMATOCRIT 43.7 % (39.0-53.0); HEMOGLOBIN 14.7 g/dL (13.0-17.5); LYMPH # 2.3 x10^3/uL (1.0-4.8); LYMPH % 35 % (24-48); MEAN CORPUSCULAR HEMOGLOBIN 30 pg (25-35); MEAN CORPUSCULAR HGB CONC 34 g/dL (31-37); MEAN CORPUSCULAR VOLUME 88 fL (79-100); MONO # 0.6 x10^3/uL (0.0-1.1); MONO % 9 % (0-9); NEUT # 3.6 x10^3uL (1.8-7.7); NEUT % 55 % (31-73); PLATELET COUNT 161 x10^3/uL (140-400); RED BLOOD COUNT 4.96 x10^6/uL (4.30-5.70); RED CELL DISTRIBUTION WIDTH 13.1 % (11.5-14.5); WHITE BLOOD COUNT 6.6 x10^3/uL (4.0-11.0)
[2020-05-05 22:53] LABS: ACETAMIN < 2.0 mcg/mL (10-30); CALCIUM 8.6 mg/dL (8.5-10.1); ETHANOL < 10 mg/dL (0-10); GFR 116.5; POTASSIUM 3.4 mmol/L (3.5-5.1); SALIC < 2.8 mg/dL (2.8-20.0)
[2020-05-05 22:55] LABS: ALBUMIN 4.1 g/dL (3.4-5.0); DIRECT BILIRUBIN 0.1 mg/dL (0.0-0.2); MAGNESIUM 2.1 mg/dL (1.8-2.4); TOTAL BILIRUBIN 0.4 mg/dL (0.2-1.0); TOTAL PROTEIN 7.6 g/dL (6.4-8.2)
[2020-05-05 23:14] LABS: BILIRUBIN,URINE NEG (NEG); CLARITY,URINE CLEAR; COLOR,URINE YELLOW; GLUCOSE,URINE NEG (NEG)
[2020-05-05 23:15] LABS: BACTERIA,URINE 0 /HPF (0-FEW); NITRITE,URINE NEG (NEG); RBC,URINE 0 /HPF (0-2); SQUAMOUS EPITHELIAL CELL,UR OCC /LPF; UROBILINOGEN,URINE 0.2 mg/dL (0.2 mg/dL); WBC,URINE OCC /HPF (0-4)
--- NOTE | 2020-05-05 23:18 | RAD ---
XR CHEST 1V Clinical History: Reason: dyspnea / Spl. Instructions: / History: Technique: AP view of the chest was obtained at 05/05/2020 10:58 PM. Comparison: March 17, 2020. Findings: The cardiomediastinal silhouette is normal. The pulmonary vasculature is normal. The lungs and pleura l margins are clear. Impression: No evidence of an acute cardiopulmonary process. Electronically signed by: Mitch Mancuso III, MD (05/05/2020 11:16 PM) [facility]
[2020-05-06 01:05] LABS: BARBITURATES NEG (NEG); BENZODIAZEPINES NEG (NEG); CANNABINOIDS NEG (NEG); COCAINE NEG (NEG); METHADONE NEG (NEG); OPIATES NEG (NEG); PHENCYCLIDINE NEG (NEG)
[2020-05-06 01:06] LABS: AMPHETAMINE/METHAMPHETAMINE NEG (NEG)
--- NOTE | 2020-05-06 03:26 | EKG ---
[address] [address] Test Date: 2020-05-05 Test Time: 22:35:41 Pat Name: CRISTIAN ALVARADO Department: Room: Gender: M Document Reviewer: : 2000 Requested By: ELBA NOVOA Order Number: [id number] Reading MD: Measurements Intervals [place] Rate: 64 P: 56 IA: 148 QRS: 52 QRSD: 78 T: 32 QT: 350 QTc: 365 Interpretive Statements SINUS RHYTHM OTHERWISE NORMAL ECG RI6.02 No previous ECG available for comparison
[2020-05-06 05:26] VITALS: BP 118/70
== END 2020-05-06 09:34 | disposition short-term general hospital (02) ==
LOC: EDBD → ER 21:59
DX: R45.851 Suicidal ideations (principal); F32.9 Major depressive disorder, single episode, unspecified; F41.9 Anxiety disorder, unspecified; R62.50 Unspecified lack of expected normal physiological development in childhood; Z20.822 Contact with and (suspected) exposure to COVID-19
CPT/HCPCS: 36415; 71045; 80048; 80076; 80307; 80329; 81001; 82550; 83690; 83735; 84443; 84484; 85025; 85610; 85730; 87426; 93005; 96360; 99285; C9803; G0480; J7120; U0003; 96365

== ENCOUNTER 2020-05-11 15:14 | Emergency (ER) | payer OTHER ==
[~2020-05-11] VITALS: Ht 172.7 cm; Wt 62.7 kg
--- NOTE | 2020-05-11 16:37 | EKG ---
[address] [address] Test Date: 2020-05-11 Test Time: 16:20:01 Pat Name: CRISTIAN ALVARADO Department: Room: Gender: M Addictions Therapist: DANNIE : 2000 Requested By: WENDY LANGLEY Order Number: [id number] Reading MD: Measurements Intervals [place] Rate: 58 P: 45 TX: 118 QRS: 53 QRSD: 76 T: 26 QT: 380 QTc: 376 Interpretive Statements SINUS RHYTHM OTHERWISE NORMAL ECG RI6.02 No previous ECG available for comparison
--- NOTE | 2020-05-11 16:50 | PHYS DOC ---
Past History Past Medical History: Anxiety, Constipation, Depression, D.U.B, Seizure Additional Past Medical Histor: "STRESS", SEIZURE, pseudo seizures (WENDY LANGLEY MD) Past Medical History: Anxiety, Constipation, Depression, Seizure (ELBA HALL MD) Past Surgical History: Other Additional Past Surgical Histo: BELLY BUTTON SURGERY (WENDY LANGLEY MD) Smoking: Non-smoker Alcohol Use: None Drug Use: None (WENDY ALNGLEY MD) General Adult EDM: Chief Complaint: SUICIDAL IDEATION HPI: HPI: Patient is a 19-year-old male coming in for suicidal ideation. Was seen for the same 1 week ago and transferred to [facility]. Patient states he was there for a couple of days and has medications changed but states that he has not been getting any better. Has plan that he wants to jump out of a moving vehicle but has not attempted. Denies any ingestions. Denies any hallucinations or weapons at home. He otherwise has been feeling medically well (WENDY LANGLEY MD) Review of Systems: Review of Systems: All other systems within normal limits except for as noted in the HPI (WENDY LANGLEY MD) Allergies: Allergies: Allergies Coded Allergies Type Severity Reaction Last Updated Verified No Known Drug Allergies 03/13/20 No (WENDY LANGLEY MD) Physical Exam: PE: Constitutional: Well developed, well nourished, no acute distress, non-toxic appearance. [] HENT: Normocephalic, atraumatic, bilateral external ears normal, nose normal. [] Eyes: PERRLA, conjunctiva normal, no discharge. [] Neck: No rigidity, supple, no stridor. [] Cardiovascular: Regular rate and rhythm, brisk cap refill [] Lungs & Thorax: Non labored symmetric respirations, no tachypnea or respiratory distress [] Abdomen: Soft, nondistended. Skin: Warm, dry, no erythema, no rash. [] Back: Unremarkable Extremities: No deformities, range of motion grossly intact, no lower extremity edema [] Neurologic: Alert and oriented X 3, no focal deficits noted. [] Psychologic: Affect normal, judgement normal, mood normal. [] (WENDY LANGLEY MD) EKG: EKG: Sinus rhythm, heart rate 50 bpm, normal axis, no ST elevation or depression, T waves unremarkable. Normal intervals [] (WENDY LANGLEY MD) Radiology/Procedures: Radiology/Procedures: [] (WENDY LANGLEY MD) Heart Score: Risk Factors: Risk Factors: DM, Current or recent (<one month) smoker, HTN, HLP, family history of CAD, obesity. Risk Scores: Score 0 - 3: 2.5% MACE over next 6 weeks - Discharge Home Score 4 - 6: 20.3% MACE over next 6 weeks - Admit for Clinical Observation Score 7 - 10: 72.7% MACE over next 6 weeks - Early Invasive Strategies (WENDY LANGLEY MD) Course & Med Decision Making: Course & Med Decision Making Medically cleared for PAT evaluation, plan pending at shift change, care transition to Dr. Hall. (WENDY LANGLEY MD) Course & Med Decision Making Pt. accepted at [facility]- Dr Barragan See Dr. Langley chart for details See PAT evaluation for psych. evaluation Impression: 1. Depression 2. Suicidal ideation 3. Anxiety 4. History of developmental delay 5. 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 (WENDY LANGLEY MD) Departure Departure: Impression: Primary Impression: Suicidal ideations Referrals: LUCIANO SQUIRES (PCP) Dragon Disclaimer This chart was dictated in whole or in part using Voice Recognition software in a busy, high-work load, and often noisy Emergency Department environment. It may contain unintended and wholly unrecognized errors or omissions. (ELBA HALL MD) WENDY LANGLEY MD May 11, 2020 16:50 LEBA HALL MD May 12, 2020 01:03
[2020-05-11 17:18] LABS: BASO # 0.1 x10^3/uL (0.0-0.2); BASO % 1 % (0-3); EOS # 0.1 x10^3/uL (0.0-0.7); EOS % 2 % (0-3); HEMATOCRIT 46.7 % (39.0-53.0); HEMOGLOBIN 15.5 g/dL (13.0-17.5); LYMPH # 1.8 x10^3/uL (1.0-4.8); LYMPH % 34 % (24-48); MEAN CORPUSCULAR HEMOGLOBIN 30 pg (25-35); MEAN CORPUSCULAR HGB CONC 33 g/dL (31-37); MEAN CORPUSCULAR VOLUME 89 fL (79-100); MONO # 0.5 x10^3/uL (0.0-1.1); MONO % 9 % (0-9); NEUT # 2.8 x10^3uL (1.8-7.7); NEUT % 54 % (31-73); PLATELET COUNT 166 x10^3/uL (140-400); RED BLOOD COUNT 5.26 x10^6/uL (4.30-5.70); RED CELL DISTRIBUTION WIDTH 13.2 % (11.5-14.5); WHITE BLOOD COUNT 5.2 x10^3/uL (4.0-11.0)
[2020-05-11 17:32] LABS: CALCIUM 8.8 mg/dL (8.5-10.1); GFR 116.5; POTASSIUM 3.7 mmol/L (3.5-5.1)
[2020-05-11 17:35] LABS: ACETAMIN < 2.0 mcg/mL (10-30); ETHANOL < 10 mg/dL (0-10); SALIC < 2.8 mg/dL (2.8-20.0)
[2020-05-11 17:38] LABS: ALBUMIN 4.3 g/dL (3.4-5.0); ALBUMIN/GLOBULIN RATIO 1.2 (1.0-1.7); MAGNESIUM 2.4 mg/dL (1.8-2.4); TOTAL BILIRUBIN 0.5 mg/dL (0.2-1.0); TOTAL PROTEIN 7.8 g/dL (6.4-8.2)
[2020-05-11 19:40] LABS: BARBITURATES NEG (NEG); BENZODIAZEPINES NEG (NEG); CANNABINOIDS NEG (NEG); COCAINE NEG (NEG); METHADONE NEG (NEG); OPIATES NEG (NEG); PHENCYCLIDINE NEG (NEG)
[2020-05-11 19:44] LABS: BILIRUBIN,URINE SMALL (NEG); CLARITY,URINE CLEAR; COLOR,URINE AMBER; GLUCOSE,URINE NEG (NEG)
[2020-05-11 19:45] LABS: AMPHETAMINE/METHAMPHETAMINE NEG (NEG); NITRITE,URINE NEG (NEG)
[2020-05-11 19:47] LABS: BACTERIA,URINE 0 /HPF (0-FEW); RBC,URINE 0 /HPF (0-2); WBC,URINE 0 /HPF (0-4)
[2020-05-11 21:20] VITALS: BP 105/64
== END 2020-05-12 02:14 | disposition short-term general hospital (02) ==
LOC: ER 15:14 → EDBD 15:14 → ER 05-12 02:14
DX: R45.851 Suicidal ideations (principal); Z20.822 Contact with and (suspected) exposure to COVID-19; F41.9 Anxiety disorder, unspecified; F32.9 Major depressive disorder, single episode, unspecified; Z98.890 Other specified postprocedural states
CPT/HCPCS: 36415; 80053; 80307; 80329; 81001; 83735; 85025; 87426; 93005; 99285; C9803; G0480; U0003

== ENCOUNTER 2020-05-21 19:05 | Emergency (ER) | payer OTHER ==
[~2020-05-21] VITALS: Ht 172.7 cm; Wt 62.7 kg
[2020-05-21 19:05] VITALS: BP 130/80
--- NOTE | 2020-05-21 19:21 | PHYS DOC ---
Past History Past Medical History: Anxiety, Constipation, Depression, Seizure Additional Past Medical Histor: "STRESS", SEIZURE, pseudo seizures (FRANK GALLEGOS APRN) Past Surgical History: Other Additional Past Surgical Histo: BELLY BUTTON SURGERY (FRANK GALLEGOS APRN) Smoking: Non-smoker Alcohol Use: None Drug Use: None (FRANK GALLEGOS APRN) Adult General Chief Complaint Chief Complaint: SEIZURE HPI HPI Patient is a 19-year-old male brought in by EMS with a chief complaint of seizure-like activity at home prior to arrival. EMS plug stitcher states they were called to the patient's residence for a seizure that lasted 10 minutes however plug stitcher reports patient's mother who witnessed the seizure called EMS at the very beginning of the seizure like activity and their arrival was 3 minutes after initial call was placed to them. EMS plug stitcher reports the patient was not having any seizure-like activity when they arrived, the patient was not in a postictal state, the patient did not lose continence of bowel or bladder, the patient did not bite his tongue, patient was alert and oriented x3 and acting appropriately upon their arrival. EMS plug stitcher reports a initial fingerstick blood sugar of 138. Patient reports that he remembers feeling a little woozy and starting to have his seizures but then pulled himself out of his seizure. Patient states his mom came to his side and seeing that he was shaking so she went to call 911. Patient states that this time he was able to prevent himself from going into a full-blown seizure. Patient denies biting his tongue, denies losing continence of bowel or bladder, denies any headaches, dizziness, neurological changes at this time. Patient denies chest pain, abdominal pain, nausea, vomiting, diarrhea. Patient denies any recent fever or chills, denies any loss of taste or loss of smell. Patient denies any muscle aches or general malaise. Patient states that he has not taken his evening dose of Keppra. Patient denies homicidal or suicidal ideation. Patient denies any other physical complaints or physical concerns. Patient states he is safe at home. Patient reports he has a appointment with his neurologist Dr. Frances in 2 weeks, also states he intends to make an appointment with his primary care doctor on Friday, May 22, 2020 for EMS plug stitcher reports that this was his second call out to the home, stating that PD had called EMS paramedics for assistance for a possible suicidal ideation, patient had denied any suicidal ideation for them on scene and they were dismissed. (FRANK GALLEGOS APRN) Review of Systems Review of Systems 14 body systems of review of systems have been reviewed. See HPI for pertinent positives and negative responses, otherwise all other systems are negative, nonpertinent or noncontributory. (FRANK GALLEGOS APRN) Allergies Allergies Allergies Coded Allergies Type Severity Reaction Last Updated Verified No Known Drug Allergies 03/13/20 No (FRANK GALLEGOS APRN) Physical Exam Physical Exam Constitutional: Well developed, well nourished, no acute distress, non-toxic appearance. 19-year-old male in no apparent distress. History of developmental delay. HENT: Normocephalic, atraumatic, bilateral external ears normal, oropharynx moist, no oral exudates, nose normal. Eyes: PERRLA, EOMI, conjunctiva normal, no discharge. Neck: Normal range of motion, no tenderness, supple, no stridor. Cardiovascular:Heart rate regular rhythm, no murmur Lungs & Thorax: Bilateral breath sounds clear to auscultation Abdomen: Bowel sounds normal, soft, no tenderness, no masses, no pulsatile masses. Skin: Warm, dry, no erythema, no rash. Back: No tenderness, no CVA tenderness. Extremities: No tenderness, no cyanosis, no clubbing, ROM intact, no edema. Neurologic: Alert and oriented X 3, normal motor function, normal sensory function, no focal deficits noted. Psychologic: Affect flat, judgement normal, mood normal. (FRANK GALLEGOS APRN) EKG EKG [] (FRANK GALLEGOS APRN) Radiology/Procedures Radiology/Procedures [] (FRANK GALLEGOS APRN) Heart Score Risk Factors: Risk Factors: DM, Current or recent (<one month) smoker, HTN, HLP, family history of CAD, obesity. Risk Scores: Risk Factors: DM, Current or recent (<one month) smoker, HTN, HLP, family history of CAD, obesity. (FRANK GALLEGOS APRN) Course & Med Decision Making Course & Med Decision Making Pertinent Labs and Imaging studies reviewed. (See chart for details) 19-year-old male, vital signs reviewed, presents to the emergency department with concerns of grand mal seizure at home. Physical examination was unremarkable. Patient has a history of similar events, also has a history of intellectual and developmental delay. Physical examination and interview of patient leads me to suspect this was not a seizure. After an extensive chart review, it was noted that the patient has been seen and followed by neurologist Dr. Hudson and Juan Daniel who have suspected the patient is having either pseudoseizures or seizure type activity that has been an emotional component or secondary gain. ED plan will monitor for any further seizure-like activity while pending labs CBC and BMP. We will draw a Keppra level today however Keppra level will not be resulted for 1 to 2 days per house laboratory staff. Prior to pending lab results, ED nurse DOMINGO De La Cruz approached me stating the patient wishes to leave AGAINST MEDICAL ADVICE. Spoke with patient at bedside regarding ED evaluation, risk versus benefits of staying for evaluation versus leaving AGAINST MEDICAL ADVICE, patient is adamant that he wishes to leave at this time, patient denies any homicidal or suicidal ideations, the patient is alert and oriented x3, in my opinion the patient is able to make his own educated medical decisions, the patient has reviewed the AMA form and has signed prior to leaving the hospital. Encourage patient to stay for completion of evaluation, encourage patient to return to the emergency department for worsening symptoms or further seizures, patient states he will see his doctor tomorrow and keep his appointment with Dr. Frances, patient has left the emergency department AGAINST MEDICAL ADVICE. (FRANK GALLEGOS APRN) Dragon Disclaimer Dragon Disclaimer This electronic medical record was generated, in whole or in part, using a voice recognition dictation system. (FRANK GALLEGOS APRN) Departure Departure: Impression: Primary Impression: Seizure-like activity Additional Impression: Left against medical advice Disposition: 01 DC HOME SELF CARE/HOMELESS Condition: GOOD Referrals: LUCIANO SQUIRES (PCP) Additional Instructions: Please keep your appointment with Dr. Frances, and make your appointment to see your primary care doctor this Friday as we discussed, please return to the emergency department for worsening symptoms or other concerns. Patient does not wish to proceed with medical care recommended by ROSALEE MARR. Patient given information related to possible complications, up to and including , which could occur as a result of leaving the hospital at this time. Patient verbalizes understanding of risks involved due to leaving against medical advice. Patient has signed AMA form. Attending Signature Attending Signature I have participated in the care of this patient and I have reviewed and agree with all pertinent clinical information above including history, exam, and recommendations. (ELBA NOVOA MD) Problem Qualifiers FRANK GALLEGOS APRN May 21, 2020 19:21 ELBA NOVOA MD May 22, 2020 03:30
[2020-05-21 20:36] LABS: BASO % 1 % (0-3); EOS # 0.1 x10^3/uL (0.0-0.7); EOS % 2 % (0-3); HEMATOCRIT 45.8 % (39.0-53.0); HEMOGLOBIN 15.1 g/dL (13.0-17.5); LYMPH # 2.3 x10^3/uL (1.0-4.8); LYMPH % 37 % (24-48); MEAN CORPUSCULAR HEMOGLOBIN 30 pg (25-35); MEAN CORPUSCULAR HGB CONC 33 g/dL (31-37); MEAN CORPUSCULAR VOLUME 90 fL (79-100); MONO # 0.4 x10^3/uL (0.0-1.1); MONO % 7 % (0-9); NEUT # 3.3 x10^3uL (1.8-7.7); NEUT % 53 % (31-73); PLATELET COUNT 169 x10^3/uL (140-400); RED BLOOD COUNT 5.11 x10^6/uL (4.30-5.70); RED CELL DISTRIBUTION WIDTH 13.4 % (11.5-14.5); WHITE BLOOD COUNT 6.1 x10^3/uL (4.0-11.0)
[2020-05-21 20:39] LABS: CALCIUM 8.7 mg/dL (8.5-10.1); GFR 116.5
== END 2020-05-21 19:45 | disposition left against medical advice (07) ==
LOC: ER 19:05 → EDBD 19:05 → ER 19:45
DX: R56.9 Unspecified convulsions (principal); F41.9 Anxiety disorder, unspecified; F32.9 Major depressive disorder, single episode, unspecified; R42 Dizziness and giddiness
CPT/HCPCS: 80048; 85025; 99283

== ENCOUNTER 2020-06-12 17:50 | Emergency (ER) | payer OTHER ==
[~2020-06-12] VITALS: Ht 172.7 cm; Wt 62.7 kg
--- NOTE | 2020-06-12 18:14 | PHYS DOC ---
Past History Past Medical History: Anxiety, Constipation, Depression, Seizure Additional Past Medical Histor: "STRESS", SEIZURE, pseudo seizures Past Surgical History: Other Additional Past Surgical Histo: BELLY BUTTON SURGERY Smoking: Non-smoker Alcohol Use: None Drug Use: None Adult General Chief Complaint Chief Complaint: PSYCH EVALUATION HPI HPI Patient is a 19-year-old male presenting via EMS for suicidal ideation. Reports breaking up with his significant other 1 day ago. [facility], did not endorse SI/HI. Was offered to have medical work-up for clearance and consultation with PAT team but patient was having active argument with his girlfriend and subsequently left AMA. Patient reported he would follow-up with the guidance Center this morning, which he did. States him and his girlfriend broke up yesterday evening due to family stressors and recent verbal altercations between patient, girlfriend and patient's mother. Patient currently living at [facility] but is unsure how long he can pay for this. Reports prior to arrival, was feeling sad at his hotel and had thoughts that he would be better off not here but had no specific plan. Reports having x1 prior suicidal attempt by headbutting a wall. Has history of depression for which he takes Zoloft, no other known medical issues or daily medications. Denies any alcohol or illicit drug abuse. Review of Systems Review of Systems Fourteen body systems of review of systems have been reviewed. See HPI for pertinent positives and negative responses, other calderón all other systems are negative, non-pertinent or non-contributory Allergies Allergies Allergies Coded Allergies Type Severity Reaction Last Updated Verified No Known Drug Allergies 03/13/20 No Physical Exam Physical Exam Constitutional: Well developed, well nourished, no acute distress, non-toxic appearance. HENT: Normocephalic, atraumatic, bilateral external ears normal, oropharynx moist, no oral exudates, nose normal. Eyes: PERRLA, EOMI, conjunctiva normal, no discharge. Neck: Normal range of motion, no tenderness, supple, no stridor. Cardiovascular: Heart rate regular, sinus rhythm, no murmurs rubs or gallops Lungs & Thorax: Bilateral breath sounds clear to auscultation Abdomen: Bowel sounds normal, soft, no tenderness, no masses, no pulsatile masses. Nonsurgical abdomen, no peritoneal signs Skin: Warm, dry, no erythema, no rash. Back: No tenderness, no CVA tenderness. Extremities: No tenderness, no cyanosis, no clubbing, ROM intact, no edema. Neurologic: Alert and oriented X 3, grossly normal motor & sensory function, no focal deficits noted. Psychologic: Flat affect, depressed mood Current Patient Data Vital Signs Vital Signs Date Time Temp Pulse Resp B/P (MAP) Pulse Ox O2 Delivery O2 Flow Rate FiO2 06/12/20 17:50 98.2 68 16 136/75 (95) 99 Room Air EKG EKG [] Radiology/Procedures Radiology/Procedures [] Heart Score C/O Chest Pain: No HEART Score for Chest Pain: HEART Score for Chest Pain Response (Comments) Value History Slighlty/Non-Suspicious 0 Age < 45 0 Risk Factors No Risk Factors 0 Total 0 Risk Factors: Risk Factors: DM, Current or recent (<one month) smoker, HTN, HLP, family history of CAD, obesity. Risk Scores: Risk Factors: DM, Current or recent (<one month) smoker, HTN, HLP, family history of CAD, obesity. Course & Med Decision Making Course & Med Decision Making No dynamically stable patient with history concerning for passive SI. Physical exam nonconcerning. Patient medically cleared from my standpoint but given complaints, PAT team was consulted for evaluation of patient at his request Patient evaluated by qualified mental health professional who reviewed any appropriate supporting documentation and previous available medical records and feels patient does not meet criteria for transfer/direct admission to a mental health facility. Please refer to qualified mental health professional's documentation for details regarding this decision. Arrangements were made for patient to be admitted to [facility] in outpatient setting; however, he declined. As such, safety plan was created. Patient's biggest worry is housing, [facility] but unknown how long he can afford this for. He will be discharging home to friend's house. He has all necessary resources required and will present to guidance Center tomorrow for therapy, has medication management appointment scheduled on Friday Strict return precautions were discussed with good understanding by patient, all questions and concerns addressed prior to your departure in stable condition Dragon Disclaimer Dragon Disclaimer This electronic medical record was generated, in whole or in part, using a voice recognition dictation system. Departure Departure: Impression: Primary Impression: Depression Additional Impression: Passive suicidal ideations Disposition: 01 DC HOME SELF CARE/HOMELESS Condition: STABLE Referrals: LUCIANO SQUIRES (PCP) Additional Instructions: As discussed prior to ER departure, please follow-up with guidance center for therapy tomorrow morning as previously scheduled. In addition, it is important for you to follow-up this upcoming Friday for medication review as previously scheduled. You have had a lot of home stressors going on recently and we are here to support you. Please utilize resources given to you today by our PAT team. If you have any questions or concerns please do not hesitate to call our ER and/or represent for repeat evaluation. It was a pleasure to take care of you and I wish you the best going forward Problem Qualifiers CHARLENE WHITE DO Jun 12, 2020 18:14
[2020-06-12 20:15] VITALS: BP 102/76
[2020-06-12 20:23] LABS: BARBITURATES NEG (NEG); BENZODIAZEPINES NEG (NEG); CANNABINOIDS NEG (NEG); COCAINE NEG (NEG); METHADONE NEG (NEG); OPIATES NEG (NEG); PHENCYCLIDINE NEG (NEG)
[2020-06-12 20:24] LABS: AMPHETAMINE/METHAMPHETAMINE NEG (NEG)
== END 2020-06-12 20:21 | disposition home or self-care (01) ==
LOC: ER 17:50
DX: F32.9 Major depressive disorder, single episode, unspecified (principal); R45.851 Suicidal ideations; F41.9 Anxiety disorder, unspecified
CPT/HCPCS: 36415; 80307; 99285

== ENCOUNTER 2020-07-29 12:34 | Emergency (ER) | payer OTHER ==
[~2020-07-29] VITALS: Ht 172.7 cm; Wt 62.7 kg
[2020-07-29 12:34] VITALS: BP 122/46
--- NOTE | 2020-07-29 12:41 | PHYS DOC ---
Past History Past Medical History: Anxiety, Constipation, Depression, Seizure Additional Past Medical Histor: "STRESS", SEIZURE, pseudo seizures, SUICIDAL IDEATION Past Surgical History: Other Additional Past Surgical Histo: BELLY BUTTON SURGERY Smoking: Non-smoker Alcohol Use: None Drug Use: None Adult General Chief Complaint Chief Complaint: NOSEBLEED HPI HPI Patient is a 19-year-old male who presents to the emergency department with complaint of a nosebleed that started at approximately 1130 this morning and lasted approximately 30 minutes. Patient states he called EMS to come out for an evaluation, was told that he needed to come to the emergency department for an evaluation of his nosebleed. Patient denies any nose bleeding at this time. Patient denies any nasal pain. Patient states it stopped by itself. Patient states he noticed his nose bleeding when he blew his nose and there was blood in the tissue. Patient denies any nasal trauma, denies any recent illnesses. Denies sticking anything up his nose. Patient denies any abdominal pain, nausea, or vomiting. Patient denies any new medications. Patient states he does not take any blood thinners. Patient states he has not taken any [id number] aspirin or NSAIDs. Patient denies any blood flowing down the back of his throat, denies tasting any blood. Patient denies any allergies to medications, states he takes a seizure medication, hydroxyzine, and Zoloft only. Patient reports his primary care provider is ARGELIA Barraza. Review of Systems Review of Systems 14 body systems of review of systems have been reviewed. See HPI for pertinent positives and negative responses, otherwise all other systems are negative, nonpertinent or noncontributory. Allergies Allergies Allergies Coded Allergies Type Severity Reaction Last Updated Verified No Known Drug Allergies 03/13/20 No Physical Exam Physical Exam Constitutional: Well developed, well nourished, no acute distress, non-toxic appearance. 19-year-old male in no apparent distress. HENT: Normocephalic, atraumatic, bilateral external ears normal, oropharynx moist, no oral exudates, nose normal. Oropharynx moist, pink, no edema or swelling appreciated, no bleeding noted in the oral cavity or oropharynx. Bilateral nasal turbinates are pink, moist, nonerythematous, no dried blood or bleeding noted. No lymphadenopathy of the head or neck appreciated. No trismus, no drooling appreciated. Eyes: PERRLA, EOMI, conjunctiva normal, no discharge. Neck: Normal range of motion, no tenderness, supple, no stridor. No neck pain to palpation. Cardiovascular: No cyanosis, distal cap refill less than 2 seconds. Lungs & Thorax: Patient in no respiratory distress. No audible adventitious lung sounds appreciated. Skin: Warm, dry, no erythema, no rash. Extremities: No tenderness, no cyanosis, no clubbing, ROM intact, no edema. Neurologic: Alert and oriented X 3, normal motor function, normal sensory function, no focal deficits noted. Psychologic: Affect normal, judgement normal, mood normal. EKG EKG [] Radiology/Procedures Radiology/Procedures [] Heart Score C/O Chest Pain: No Risk Factors: Risk Factors: DM, Current or recent (<one month) smoker, HTN, HLP, family his tory of CAD, obesity. Risk Scores: Risk Factors: DM, Current or recent (<one month) smoker, HTN, HLP, family history of CAD, obesity. Course & Med Decision Making Course & Med Decision Making Pertinent Labs and Imaging studies reviewed. (See chart for details) 19-year-old male, vital signs reviewed, presents emergency department concerning a nosebleed at home. Physical examination was unremarkable, there was no evidence of nosebleed upon physical examination. The patient was hemodynamically stable, the patient gave no physical indication for serum lab draw such as H&H, CBC etc. Nosebleed most likely related to environmental changes and dry nasal passages. Discussed with patient using [id number]-[id number] saline nasal spray, discussed with patient obtaining dycf-lkt-[id number] saline nasal spray at the pharmacy of his choice, discussed with patient to ask pharmacist for help if he has trouble finding saline nasal spray. Discussed with patient to make an appointment with his primary care provider this coming Friday to reevaluate nosebleeds and use of saline nasal spray. Patient gave verbal understanding of discharge home instructions, obtaining saline nasal spray at his pharmacy, follow-up with his primary care provider this Friday for reevaluation, return to ER precautions and concerns, patient was discharged home without incident. Dragon Disclaimer Dragon Disclaimer This electronic medical record was generated, in whole or in part, using a voice recognition dictation system. Departure Departure: Impression: Primary Impression: Nosebleed, symptom Disposition: HOME / SELF CARE / HOMELESS Condition: GOOD Referrals: LUCIANO SQUIRES (PCP) Patient Instructions: Nose Drops, Saline, Jwxo-ma-[id number], Nosebleed, Hpod-oh-Brag Additional Instructions: You were seen today in the emergency department for complaint of nosebleed. Your nose was not bleeding during your examination in the ER today. As we discussed, please obtain saline nasal spray at your pharmacy and use as directed. We also discussed you calling your primary care provider ARGELIA Dalton this Friday to schedule an appointment for reevaluation of your nosebleeds and use of saline nasal spray. Your primary care provider may determine if you should continue using saline nasal spray or he may change to a different medication type. Please return to the emergency department for worsening symptoms or other concerns. EMERGENCY DEPARTMENT GENERAL DISCHARGE INSTRUCTIONS Thank you for coming to [facility] (ED) today and trusting us with you care. We trust that you had a positivie experience in our Emergency Department. If you wish to speak to the department management, you may call the director at [phone]. YOUR FOLLOW UP INSTRUCTIONS ARE FOLLOWS: 1. Do you have a private Doctor? If you do not have a private doctor, please ask for a resource list of physicians or clinics that may be able to assist you with follow up care. 2. The Emergency Physician has interpreted your x-rays. The X-Ray specialist will also review them. If there is a change in the findings, you will be notified in 48 hours when at all possible. 3. A lab test or culture has been done, your results will be reviewed and you will be notified if you need a change in treatment. ADDITIONAL INSTRUCTIONS AND INFORMATION: 1. Your care today has been supervised by a physician who is specially trained in emergency care. Many problems require more than one evaluation for a complete diagnosis and treatment. We recommend that you schedule your follow up appointment as recommended to ensure complete treatment of you illness or injury. If you are unable to obtain follow up care and continue to have a problem, or if your condition worsens, we recommend that you return to the ED. 2. We are not able to safely determine your condition over the phone nor are we able to give sound medical advice over the phone. For these safety reasons, if you call for medical advice we will ask you to come to the ED for further evaluation. 3. If you have any questions regarding these discharge instructions please call the ED at [phone]. SAFETY INFORMATION: In the interest of safety, wellness, and injury prevention; we encourage you to wear your sealbelt, if you smoke; quite smoking, and we encourage family to use a protective helmet for bicycling and other sporting events that present an increased risk for head injury. IF YOUR SYMPTOMS WORSEN OR NEW SYMPTOMS DEVELOP, OR YOU HAVE CONCERNS ABOUT YOUR CONDITION; OR IF YOUR CONDITION WORSENS WHILE YOU ARE WAITING FOR YOUR FOLLOW UP APPOINTMENT; EITHER CONTACT YOUR PRIMARY CARE DOCTOR, THE PHYSICIAN WHOSE NAME AND NUMBER YOU WERE GIVEN, OR RETURN TO THE ED IMMEDIATELY. FRANK GALLEGOS APRN July 29, 2020 12:41
== END 2020-07-29 13:10 | disposition home or self-care (01) ==
LOC: ER 12:34
DX: R04.0 Epistaxis (principal); F41.9 Anxiety disorder, unspecified; F32.9 Major depressive disorder, single episode, unspecified
CPT/HCPCS: 99283

== ENCOUNTER 2020-08-26 19:16 | Emergency (ER) | payer OTHER ==
[~2020-08-26] VITALS: Ht 170.2 cm; Wt 63.6 kg
[2020-08-26] MEDS ORDERED: levETIRAcetam 500 MG TABLET PO SCH (19:45)
--- NOTE | 2020-08-26 19:56 | PHYS DOC ---
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 States that they went to [place] earlier in the day and had a long track meet today and towards the end he felt hot, sweaty and lightheaded and had to sit down. Denies any syncope, shortness of breath, chest pain, abdominal pain, vomiting, dysuria, hematuria or blood in the stool. Denies any muscle aches, numb ness/weakness/tingling, inability to sit, stand or walk. States here in the emergency department he is feeling much better. States he also came in because he is out of his Kera and has been for about the last week and had been able to make it to his doctor and would like a medication refill. Review of Systems Review of Systems Review of systems otherwise unremarkable except noted in HPI Current Medications Current Medications Current Medications Medications (Trade) Dose Ordered Sig/Sana Start Time Stop Time Status Last Admin Dose Admin Levetiracetam (Keppra) 500 mg 1X 08/26/20 19:45 Allergies Allergies Allergies Coded Allergies Type Severity Reaction Last Updated Verified No Known Drug Allergies 03/13/20 No Physical Exam Physical Exam Constitutional: Well developed, well nourished, no acute distress, non-toxic appearance. [] HENT: Normocephalic, atraumatic, bilateral external ears normal, oropharynx moist, no oral exudates, nose normal. [] Eyes: PERRLA, EOMI, conjunctiva normal, no discharge. [] Neck: Normal range of motion, no tenderness, supple, no stridor. [] Cardiovascular:Heart rate regular rhythm, no murmur [] Lungs & Thorax: Bilateral breath sounds clear to auscultation [] Abdomen: soft, no tenderness, no masses, no pulsatile masses. [] Skin: Warm, dry, no erythema, no rash. [] Back: No tenderness, Extremities: No tenderness, ROM intact, no edema. [] Neurologic: Alert and oriented X 3, normal motor function, normal sensory function, able to sit, walk and stand without issue, no focal deficits noted. Able to take p.o. without issue. [] Psychologic: Affect normal, judgement normal, mood normal. [] Current Patient Data Vital Signs Vital Signs Date Time Temp Pulse Resp B/P (MAP) Pulse Ox O2 Delivery O2 Flow Rate FiO2 08/26/20 19:18 98.2 72 16 119/72 (88) 98 Room Air Lab Results Laboratory Tests Test 08/26/20 19:42 Glucose (Fingerstick) 91 mg/dL (70-99) EKG EKG EKG with a rate of 69 QRS of 74, QTc 383, normal EKG [] Radiology/Procedures Radiology/Procedures [] Heart Score C/O Chest Pain: No Risk Factors: Risk Factors: DM, Current or recent (<one month) smoker, HTN, HLP, family history of CAD, obesity. Risk Scores: Risk Factors: DM, Current or recent (<one month) smoker, HTN, HLP, family history of CAD, obesity. Course & Med Decision Making Course & Med Decision Making Patient is a 19-year-old male who presents to the emergency department with some lightheadedness, and nausea after a track meet and for medication refill of Keppra Vital signs not concerning. Physical exam noted above. Capillary refill approximately 3 with mildly dry mucous membranes. EKG noted above and normal. Patient able to take p.o. liquids here in the emergency department without issue. Patient otherwise asymptomatic here in the ED. Given dose of home Keppra at 500 mg. Given a week long prescription of Keppra until he is able to contact his primary care on Friday. Advised to call his primary care first thing Friday morning. Advised to eat and drink normally over the night and rest and keep cool. Gave strict return precautions to the ED. [] Dragon Disclaimer Dragon Disclaimer This electronic medical record was generated, in whole or in part, using a voice recognition dictation system. Departure Departure: Impression: Primary Impression: Medication refill Additional Impressions: Lightheadedness Dehydration Disposition: HOME / SELF CARE / HOMELESS Condition: GOOD Referrals: LUCIANO SQUIRES (PCP) Patient Instructions: Dehydration, Adult, Opuh-ti-[id number], Dizziness, [id number] , Heat Disorders Additional Instructions: Please read all the attached information very carefully. Please be sure to drink plenty of fluids and eat some food tonight. Please be sure to stay indoors, keep cool and rest. Please take your Keppra as prescribed. As discussed please call your primary care physician first thing Friday morning to update on ED visit and discuss need for Keppra refill. Please refrain from any extraneous exercise or activities over the next couple of days. Please come back to the ED with new or concerning symptoms as discussed. Scripts Levetiracetam (KEPPRA) 500 Mg Tablet 1 TAB PO BID for seizure for 10 Days, #20 TAB 0 Refills Prov: ALFIE VORA MD 08/26/20 Problem Qualifiers ALFIE VORA MD Aug 26, 2020 19:56
[2020-08-26] MEDS ORDERED: LEVE500T56 PO (20:02)
[2020-08-26 20:13] VITALS: BP 120/76
--- NOTE | 2020-08-27 06:55 | EKG ---
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
== END 2020-08-26 20:16 | disposition home or self-care (01) ==
LOC: ER 19:16
DX: R42 Dizziness and giddiness (principal); E86.0 Dehydration; G40.909 Epilepsy, unspecified, not intractable, without status epilepticus; F41.9 Anxiety disorder, unspecified; F32.9 Major depressive disorder, single episode, unspecified; Z76.0 Encounter for issue of repeat prescription
CPT/HCPCS: 82947; 93005; 99283-25

== ENCOUNTER 2020-09-03 10:46 | Emergency (ER) | payer OTHER ==
[~2020-09-03] VITALS: Ht 170.2 cm; Wt 75.0 kg
[~2020-09-03 10:46] MED LIST changes: +LEVE500T56 PO
--- NOTE | 2020-09-03 10:52 | PHYS DOC ---
Past History Past Medical History: Anxiety, Constipation, Depression, Seizure Additional Past Medical Histor: "STRESS", SEIZURE, pseudo seizures, SUICIDAL IDEATION (CHARLENE WHITE DO) Past Surgical History: Other Additional Past Surgical Histo: BELLY BUTTON SURGERY (CHARLENE WHITE DO) Smoking: Non-smoker Alcohol Use: None Drug Use: None (CHARLENE WHITE DO) Adult General Chief Complaint Chief Complaint: SUICIDAL IDEATION [facility] HPI Patient is a 19-year-old male presenting via EMS for suicidal ideation. Reports he was at home, had verbal altercation with family members whom he lives with and reports having active suicidal ideation with plan. States he no longer wants to be here, his plan is to jump in the river and drown. Has significant medical history for anxiety and depression, is currently on SSRI, hydroxyzine as needed and levetiracetam for seizures. Denies any drug use, alcohol use or other illicit substances, has been compliant with all daily medications. He has history of suicidal ideation in the past, has prior inpatient psychiatric visits. He is wanting inpatient psychiatric placement at this time (CHARLENE WHITE DO) Review of Systems Review of Systems Fourteen body systems of review of systems have been reviewed. See HPI for pertinent positives and negative responses, other calderón all other systems are negative, non-pertinent or non-contributory (CHARLENE WHITE DO) Allergies Allergies Allergies Coded Allergies Type Severity Reaction Last Updated Verified No Known Drug Allergies 03/13/20 No (CHARLENE WHITE DO) Physical Exam Physical Exam Constitutional: Well developed, well nourished, no acute distress, non-toxic appearance. HENT: Normocephalic, atraumatic, bilateral external ears normal, oropharynx moist, no oral exudates, nose normal. Eyes: PERRLA, EOMI, conjunctiva normal, no discharge. Neck: Normal range of motion, no tenderness, supple, no stridor. Cardiovascular: Heart rate regular, sinus rhythm, no murmurs rubs or gallops Lungs & Thorax: Bilateral breath sounds clear to auscultation Abdomen: Bowel sounds normal, soft, no tenderness, no masses, no pulsatile masses. Nonsurgical abdomen, no peritoneal signs Skin: Warm, dry, no erythema, no rash. Back: No tenderness, no CVA tenderness. Extremities: No tenderness, no cyanosis, no clubbing, ROM intact, no edema. Neurologic: Alert and oriented X 3, grossly normal motor & sensory function, no focal deficits noted. Psychologic: Withdrawn affect, depressed mood (CHARLENE WHITE DO) Current Patient Data Vital Signs Vital Signs Date Time Temp Pulse Resp B/P (MAP) Pulse Ox O2 Delivery O2 Flow Rate FiO2 09/03/20 11:06 20 138/64 (88) 98 Room Air 09/03/20 18:18 52 Vital Signs Date Time Temp Pulse Resp B/P (MAP) Pulse Ox O2 Delivery O2 Flow Rate FiO2 09/03/20 19:16 69 18 132/54 (80) 98 Room Air Lab Results Laboratory Tests Test 09/03/20 10:38 09/03/20 10:48 09/03/20 12:06 White Blood Count 6.6 x10^3/uL Red Blood Count 5.15 x10^6/uL Hemoglobin 15.8 g/dL Hematocrit 46.5 % Mean Corpuscular Volume 90 fL Mean Corpuscular Hemoglobin 31 pg Mean Corpuscular Hemoglobin Concent 34 g/dL Red Cell Distribution Width 13.6 % Platelet Count 166 x10^3/uL Neutrophils (%) (Auto) 55 % Lymphocytes (%) (Auto) 33 % Monocytes (%) (Auto) 6 % Eosinophils (%) (Auto) 5 % Basophils (%) (Auto) 1 % Neutrophils # (Auto) 3.6 x10^3uL Lymphocytes # (Auto) 2.2 x10^3/uL Monocytes # (Auto) 0.4 x10^3/uL Eosinophils # (Auto) 0.4 x10^3/uL Basophils # (Auto) 0.1 x10^3/uL Sodium Level 141 mmol/L Potassium Level 4.4 mmol/L Chloride Level 103 mmol/L Carbon Dioxide Level 25 mmol/L Anion Gap 13 Blood Urea Nitrogen 12 mg/dL Creatinine 1.0 mg/dL Estimated GFR (Cockcroft-Gault) 116.5 BUN/Creatinine Ratio 12 Glucose Level 93 mg/dL Calcium Level 9.4 mg/dL Total Bilirubin 0.5 mg/dL Aspartate Amino Transf (AST/SGOT) 21 U/L Alanine Aminotransferase (ALT/SGPT) 24 U/L Alkaline Phosphatase 61 U/L Total Protein 7.9 g/dL Albumin 4.3 g/dL Albumin/Globulin Ratio 1.2 Salicylates Level < 2.8 mg/dL Salicylate Last Dose Date Unknown Salicylate Last Dose Time Unknown Acetaminophen Level < 2.0 mcg/mL Acetaminophen Last Dose Date Unknown Acetaminophen Last Dose Time Unknown Coronavirus (COVID-19)(PCR) Negative SARS-CoV-2 Antigen (Rapid) Negative Urine Collection Type Unknown Urine Color Yellow Urine Clarity Clear Urine pH 6.0 Urine Specific [place] 1.025 Urine Protein Neg Urine Glucose (UA) Neg mg/dL Urine Ketones (Stick) Neg mg/dL Urine Blood Neg Urine Nitrite Neg Urine Bilirubin Neg Urine Urobilinogen Dipstick 0.2 mg/dL Urine Leukocyte Esterase Neg Urine RBC 0 /HPF Urine WBC Occ /HPF Urine Squamous Epithelial Cells Occ /LPF Urine Bacteria 0 /HPF Urine Mucus Slight /LPF Urine Opiates Screen Neg Urine Methadone Screen Neg Urine Barbiturates Neg Urine Phencyclidine Screen Neg Urine Amphetamine/Methamphetamine Neg Urine Benzodiazepines Screen Neg Urine Cocaine Screen Neg Urine Cannabinoids Screen Neg Urine Ethyl Alcohol Neg (CHARLENE WHITE DO) EKG EKG [] (CHARLENE WHITE DO) Radiology/Procedures Radiology/Procedures [] (CHARLENE WHITE DO) Heart Score C/O Chest Pain: No Risk Factors: Risk Factors: DM, Current or recent (<one month) smoker, HTN, HLP, family histo ry of CAD, obesity. Risk Scores: Risk Factors: DM, Current or recent (<one month) smoker, HTN, HLP, family history of CAD, obesity. (CHARLENE WHITE DO) Course & Med Decision Making Course & Med Decision Making VSS. HPI concerning for active SI with plan. PE and ER workup non-concerning, patient medically cleared. PAT team contacted and performed their own indepedent eval of patient and feel he requires inpatient psych admission, I agree with their assessment. Please defer to their notes for further details Patient pending PCR COVID-19 swab at time of my shift. Comprehensive signout given to oncoming physician who is aware of plan of care. Patient remains stable, non-violent, and voluntary for inpatient psych transfer (CHARLENE WHITE DO) Course & Med Decision Making Patient care handed off to me at checkout. Patient quiet all night and needed no medical attention. Handed off patient to day team pending placement. (ALFIE VORA MD) Course & Med Decision Making Assumed care of patient at checkout from Dr. Vora. At checkout patient was pending placement. He is not under an involuntary hold. Patient states he no longer feels suicidal and would like to go home. Patient was reevaluated by the Pat team. At this time we will do a safety plan with the patient. He does not appear to be a harm to himself or others. Patient's test results and vitals while in the ED were fully reviewed and discussed with the patient. Patient is stable and at this time does not need admission to the hospital. We have discussed strict return precautions and the importance of following up with their Primary Care Physician. Patient stated understanding and was given an opportunity to ask any questions. Patient is in agreement with plan. (SENIA HERNÁNDEZ MD) Dragon Disclaimer Dragon Disclaimer This electronic medical record was generated, in whole or in part, using a voice recognition dictation system. (CHARLENE WHITE DO) Departure Departure: Impression: Primary Impression: Suicidal ideation Disposition: HOME / SELF CARE / HOMELESS Condition: IMPROVED Referrals: LUCIANO SQUIRES (PCP) Patient Instructions: Suicidal Feelings, How to Help Yourself CHARLENE WHITE DO Sep 03, 2020 10:52 ALFIE VORA MD Sep 04, 2020 05:27 SENIA HERNÁNDEZ MD Sep 04, 2020 10:34
[2020-09-03 11:16] LABS: BASO # 0.1 x10^3/uL (0.0-0.2); BASO % 1 % (0-3); EOS # 0.4 x10^3/uL (0.0-0.7); EOS % 5 % (0-3); HEMATOCRIT 46.5 % (39.0-53.0); HEMOGLOBIN 15.8 g/dL (13.0-17.5); LYMPH # 2.2 x10^3/uL (1.0-4.8); LYMPH % 33 % (24-48); MEAN CORPUSCULAR HEMOGLOBIN 31 pg (25-35); MEAN CORPUSCULAR HGB CONC 34 g/dL (31-37); MEAN CORPUSCULAR VOLUME 90 fL (79-100); MONO # 0.4 x10^3/uL (0.0-1.1); MONO % 6 % (0-9); NEUT # 3.6 x10^3uL (1.8-7.7); NEUT % 55 % (31-73); PLATELET COUNT 166 x10^3/uL (140-400); RED BLOOD COUNT 5.15 x10^6/uL (4.30-5.70); RED CELL DISTRIBUTION WIDTH 13.6 % (11.5-14.5); WHITE BLOOD COUNT 6.6 x10^3/uL (4.0-11.0)
[2020-09-03 11:29] LABS: ACETAMIN < 2.0 mcg/mL (10-30); SALIC < 2.8 mg/dL (2.8-20.0)
[2020-09-03 11:42] LABS: CALCIUM 9.4 mg/dL (8.5-10.1); GFR 116.5; POTASSIUM 4.4 mmol/L (3.5-5.1)
[2020-09-03 11:48] LABS: ALBUMIN 4.3 g/dL (3.4-5.0); ALBUMIN/GLOBULIN RATIO 1.2 (1.0-1.7); TOTAL BILIRUBIN 0.5 mg/dL (0.2-1.0); TOTAL PROTEIN 7.9 g/dL (6.4-8.2)
[2020-09-03 12:30] LABS: AMPHETAMINE/METHAMPHETAMINE NEG (NEG); BARBITURATES NEG (NEG); BENZODIAZEPINES NEG (NEG); CANNABINOIDS NEG (NEG); COCAINE NEG (NEG); METHADONE NEG (NEG); OPIATES NEG (NEG); PHENCYCLIDINE NEG (NEG)
[2020-09-03 12:35] LABS: BACTERIA,URINE 0 /HPF (0-FEW); BILIRUBIN,URINE NEG (NEG); CLARITY,URINE CLEAR; COLOR,URINE YELLOW; GLUCOSE,URINE NEG (NEG); NITRITE,URINE NEG (NEG); RBC,URINE 0 /HPF (0-2); SQUAMOUS EPITHELIAL CELL,UR OCC /LPF; UROBILINOGEN,URINE 0.2 mg/dL (0.2 mg/dL); WBC,URINE OCC /HPF (0-4)
[2020-09-04 10:40] VITALS: BP 131/59
== END 2020-09-04 11:40 | disposition home or self-care (01) ==
LOC: ER 10:46
DX: R45.851 Suicidal ideations (principal); F41.9 Anxiety disorder, unspecified; F32.9 Major depressive disorder, single episode, unspecified; Z20.822 Contact with and (suspected) exposure to COVID-19
CPT/HCPCS: 80053; 80307; 80329; 81001; 85025; 87426; 99285; U0003; G0480

== ENCOUNTER 2020-09-17 22:34 | Emergency (ER) | payer OTHER ==
[~2020-09-17] VITALS: Ht 170.2 cm; Wt 75.0 kg
--- NOTE | 2020-09-17 22:40 | PHYS DOC ---
Past History Past Medical History: No Pertinent History, Anxiety, Seizure Additional Past Medical Histor: "STRESS", SEIZURE, pseudo seizures, SUICIDAL IDEATION Past Surgical History: Other Additional Past Surgical Histo: BELLY BUTTON SURGERY Smoking: Non-smoker Alcohol Use: None Drug Use: None General Adult EDM: Chief Complaint: CHEST PAIN HPI: HPI: "... I ve been having chest pain all day.. it gotten really worse today. It really started bothering me about 330..." Patient is a 19 year old male who presents with chest pain. Patient is pain is centrally located and radiates to the left shoulder. Pain seems to be associated with movement and deep breaths. Patient denies any trauma. Patient denies any travel. Patient denies any specific ill contacts. No history of previous cardiac disorder. Patient does have a significant past medical history of anxiety disorder, constipation, depression, pseudoseizures, suicidal ideation,. Patient follows with [facility] for care. Review of Systems: Review of Systems: Constitutional: Denies fever or chills Eyes: Denies change in visual acuity HENT: Denies nasal congestion or sore throat Respiratory: Denies cough or shortness of breath Cardiovascular: Complains of chest pain GI: Denies abdominal pain, nausea, vomiting, bloody stools or diarrhea : Denies dysuria Musculoskeletal: Denies back pain or joint pain Integument: Denies rash Neurologic: Denies headache, focal weakness or sensory changes Endocrine: Denies polyuria or polydipsia Lymphatic: Denies swollen glands Psychiatric: Denies depression or anxiety Family History: Family History: Noncontributory to presentation. Current Medications: Current Meds: See nursing for home meds. Allergies: Allergies: Allergies Coded Allergies Type Severity Reaction Last Updated Verified No Known Drug Allergies 03/13/20 No Physical Exam: PE: Constitutional: Well developed, well nourished, no acute distress, non-toxic appearance. [] HENT: Normocephalic, atraumatic, bilateral external ears normal, oropharynx moist, no oral exudates, nose normal. [] Eyes: PERRLA, EOMI, conjunctiva normal, no discharge. [] Neck: Normal range of motion, no tenderness, supple, no stridor. [] Cardiovascular: Bradycardia heart rate regular rhythm, no murmur []. The bedside monitor shows a sinus rhythm Lungs & Thorax: Bilateral breath sounds equal at apexes on auscultation []. Deep breaths to cause pain in chest wall. Movement of left arm causes pain in chest wall on the left. Abdomen: Bowel sounds normal, soft, no tenderness, no masses, no pulsatile masses. Old surgery scar at umbilicus Skin: Warm, dry, no erythema, no rash. [] Back: No tenderness, no CVA tenderness. [] Extremities: No tenderness, no cyanosis, no clubbing, ROM intact, no edema. No cording appreciated Neurologic: Alert and oriented X 3, normal motor function, normal sensory function, no focal deficits noted. [] Psychologic: Affect anxious, judgement normal, mood normal. [] EKG: EKG: My interpretation EKG shows a a sinus bradycardia at 56 bpm no acute morphology [] Radiology/Procedures: Radiology/Procedures: [][address] [address] IMAGING REPORT Signed PATIENT: CRISTIAN ALVARADO RACCOUNT: [id number] : 2000 LOCATION: ER AGE: 19 SEX: M EXAM STATUS: DEP ER ORD. PHYSICIAN: ELBA NOVOA MD REASON: cp PROCEDURE: PORTABLE CHEST 1V XR CHEST 1V INDICATION: cp COMPARISON STUDY: 03/17/2020. FINDINGS: Lungs: Normal lung volume. No pulmonary mass or consolidation. The tracheobronchial tree and hilar structures are normal. Pleura: No pleural effusion or pneumothorax. Heart and Mediastinum: The cardiomediastinal silhouette is normal. The great vessels of the thorax are normal. Bones and Soft Tissues: The bones and soft tissues are within normal limits. IMPRESSION: No acute cardiopulmonary process. Electronically signed by: Tameka Gtz MD (09/18/2020 3:53 AM) [facility] DICTATED AND SIGNED BY: TAMEKA GTZ MD DATE: 09/18/20 035 CC: ELBA NOVOA MD; LUCIANO SQUIRES PA ~MTH0 0 Heart Score: C/O Chest Pain: Yes HEART Score for Chest Pain: HEART Score for Chest Pain Response (Comments) Value History Slighlty/Non-Suspicious 0 ECG Normal 0 Age < 45 0 Risk Factors No Risk Factors 0 Troponin < Normal Limit 0 Total 0 Risk Factors: Risk Factors: DM, Current or recent (<one month) smoker, HTN, HLP, family history of CAD, obesity. Risk Scores: Score 0 - 3: 2.5% MACE over next 6 weeks - Discharge Home Score 4 - 6: 20.3% MACE over next 6 weeks - Admit for Clinical Observation Score 7 - 10: 72.7% MACE over next 6 weeks - Early Invasive Strategies Course & Med Decision Making: Course & Med Decision Making Pertinent Labs and Imaging studies reviewed. (See chart for details) Patient to take Tylenol and ibuprofen for pain. Patient follow-up with primary care. Patient consider outpatient stress testing. Patient take a daily aspirin until follow-up. Patient return if any concerns. Patient to follow-up with cardiology. And primary. Impression": 1. Atypical chest wall pain 2. History of anxiety and panic disorder [] Dragon Disclaimer: Dragseun Disclaimer: This electronic medical record was generated, in whole or in part, using a voice recognition dictation system. Departure Departure: Referrals: LUCIANO SQUIRES (PCP) [place] Disclaimer This chart was dictated in whole or in part using Voice Recognition software in a busy, high-work load, and often noisy Emergency Department environment. It may contain unintended and wholly unrecognized errors or omissions. ELBA NOVOA MD Sep 17, 2020 22:40
[2020-09-17] MEDS ORDERED: IV RINGERS SOLUTION,LACTATED 1,000 ML IV SCH (22:45)
[2020-09-17 23:41] LABS: BASO # 0.1 x10^3/uL (0.0-0.2); BASO % 1 % (0-3); EOS # 0.4 x10^3/uL (0.0-0.7); EOS % 6 % (0-3); HEMATOCRIT 42.6 % (39.0-53.0); HEMOGLOBIN 14.5 g/dL (13.0-17.5); LYMPH % 41 % (24-48); MEAN CORPUSCULAR HEMOGLOBIN 31 pg (25-35); MEAN CORPUSCULAR HGB CONC 34 g/dL (31-37); MEAN CORPUSCULAR VOLUME 90 fL (79-100); MONO # 0.5 x10^3/uL (0.0-1.1); MONO % 6 % (0-9); NEUT # 3.4 x10^3uL (1.8-7.7); NEUT % 46 % (31-73); PLATELET COUNT 150 x10^3/uL (140-400); RED BLOOD COUNT 4.73 x10^6/uL (4.30-5.70); RED CELL DISTRIBUTION WIDTH 13.3 % (11.5-14.5); WHITE BLOOD COUNT 7.3 x10^3/uL (4.0-11.0)
[2020-09-17 23:54] LABS: CALCIUM 8.7 mg/dL (8.5-10.1); DIRECT BILIRUBIN 0.1 mg/dL (0.0-0.2); GFR 116.5; MAGNESIUM 2.1 mg/dL (1.8-2.4); POTASSIUM 3.6 mmol/L (3.5-5.1); TOTAL BILIRUBIN 0.3 mg/dL (0.2-1.0); TOTAL PROTEIN 6.9 g/dL (6.4-8.2)
[2020-09-18 00:19] LABS: BACTERIA,URINE 0 /HPF (0-FEW); BILIRUBIN,URINE NEG (NEG); CLARITY,URINE CLEAR; COLOR,URINE YELLOW; GLUCOSE,URINE NEG (NEG); NITRITE,URINE NEG (NEG); RBC,URINE 0 /HPF (0-2); UROBILINOGEN,URINE 0.2 mg/dL (0.2 mg/dL); WBC,URINE OCC /HPF (0-4)
[2020-09-18 00:26] LABS: BARBITURATES NEG (NEG); BENZODIAZEPINES NEG (NEG); CANNABINOIDS NEG (NEG); COCAINE NEG (NEG); METHADONE NEG (NEG); OPIATES NEG (NEG); PHENCYCLIDINE NEG (NEG)
[2020-09-18 00:32] LABS: AMPHETAMINE/METHAMPHETAMINE NEG (NEG)
[2020-09-18 01:50] VITALS: BP 102/50
--- NOTE | 2020-09-18 03:56 | RAD ---
XR CHEST 1V INDICATION: cp COMPARISON STUDY: 03/17/2020. FINDINGS: Lungs: Normal lung volume. No pulmonary mass or consolidation. The tracheobronchial tree and hilar st ructures are normal. Pleura: No pleural effusion or pneumothorax. Heart and Mediastinum: The cardiomediastinal silhouette is normal. The great vessels of the thorax ar e normal. Bones and Soft Tissues: The bones and soft tissues are within normal limits. IMPRESSION: No acute cardiopulmonary process. Electronically signed by: Sanya Russ MD (09/18/2020 3:53 AM) [facility]
--- NOTE | 2020-09-19 21:49 | EKG ---
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
== END 2020-09-18 02:00 | disposition home or self-care (01) ==
LOC: ER 22:34
DX: R07.89 Other chest pain (principal); F41.9 Anxiety disorder, unspecified
CPT/HCPCS: 36415; 71045; 80048; 80076; 80307; 81001; 82550; 83735; 84443; 84484; 85025; 93005; 96360; 99285; J7120

== ENCOUNTER 2020-09-22 14:33 | Emergency (ER) | payer OTHER ==
[~2020-09-22] VITALS: Ht 170.2 cm; Wt 75.0 kg
--- NOTE | 2020-09-22 14:45 | PHYS DOC ---
Past History Past Medical History: Anxiety, Seizure Additional Past Medical Histor: "STRESS", SEIZURE, pseudo seizures, SUICIDAL IDEATION Past Surgical History: Other Additional Past Surgical Histo: BELLY BUTTON SURGERY Smoking: Non-smoker Alcohol Use: None Drug Use: None Adult General Chief Complaint Chief Complaint: SUICIDAL IDEATION HPI HPI Patient is a 19-year-old male well-known to our department presenting via EMS for suicidal ideation. Reports he has been living at homeless skilled nursing recently and does not like it. He reports he has had unstable living conditions and has had poor family support. Patient reports he has been taking all prescribed behavioral health medications as scheduled but these did not help him. Reported waking up today without any inciting event, ingestion or altercation and reporting more hopeless than usual. States he had and currently has active suicidal ideation with plan to jump into high-speed traffic. States he recognized his symptoms and called EMS for transport to our facility. Denies any drug abuse, no other changes in health Review of Systems Review of Systems Fourteen body systems of review of systems have been reviewed. See HPI for pertinent positives and negative responses, other calderón all other systems are negative, non-pertinent or non-contributory Allergies Allergies Allergies Coded Allergies Type Severity Reaction Last Updated Verified No Known Drug Allergies 03/13/20 No Physical Exam Physical Exam Constitutional: Well developed, well nourished, no acute distress, non-toxic appearance. HENT: Normocephalic, atraumatic, bilateral external ears normal, oropharynx moist, no oral exudates, nose normal. Eyes: PERRLA, EOMI, conjunctiva normal, no discharge. Neck: Normal range of motion, no tenderness, supple, no stridor. Cardiovascular: Heart rate regular, sinus rhythm, no murmurs rubs or gallops Lungs & Thorax: Bilateral breath sounds clear to auscultation Abdomen: Bowel sounds normal, soft, no tenderness, no masses, no pulsatile masses. Nonsurgical abdomen, no peritoneal signs Skin: Warm, dry, no erythema, no rash. Back: No tenderness, no CVA tenderness. Extremities: No tenderness, no cyanosis, no clubbing, ROM intact, no edema. Neurologic: Alert and oriented X 3, grossly normal motor & sensory function, no focal deficits noted. Psychologic: Flat affect, depressed mood Current Patient Data Vital Signs Vital Signs Date Time Temp Pulse Resp B/P (MAP) Pulse Ox O2 Delivery O2 Flow Rate FiO2 7/2/21 14:33 99.8 75 16 124/64 100 Room Air Vital Signs Date Time Temp Pulse Resp B/P (MAP) Pulse Ox O2 Delivery O2 Flow Rate FiO2 09/22/20 14:33 99.8 75 16 124/64 100 Room Air Lab Results Laboratory Tests Test 09/22/20 14:48 09/22/20 15:25 09/22/20 15:28 White Blood Count 7.4 x10^3/uL Red Blood Count 4.99 x10^6/uL Hemoglobin 15.5 g/dL Hematocrit 45.3 % Mean Corpuscular Volume 91 fL Mean Corpuscular Hemoglobin 31 pg Mean Corpuscular Hemoglobin Concent 34 g/dL Red Cell Distribution Width 13.2 % Platelet Count 159 x10^3/uL Neutrophils (%) (Auto) 63 % Lymphocytes (%) (Auto) 26 % Monocytes (%) (Auto) 5 % Eosinophils (%) (Auto) 5 % Basophils (%) (Auto) 1 % Neutrophils # (Auto) 4.6 x10^3uL Lymphocytes # (Auto) 2.0 x10^3/uL Monocytes # (Auto) 0.4 x10^3/uL Eosinophils # (Auto) 0.4 x10^3/uL Basophils # (Auto) 0.1 x10^3/uL Sodium Level 142 mmol/L Potassium Level 3.8 mmol/L Chloride Level 105 mmol/L Carbon Dioxide Level 29 mmol/L Anion Gap 8 Blood Urea Nitrogen 18 mg/dL Creatinine 1.1 mg/dL Estimated GFR (Cockcroft-Gault) 104.3 BUN/Creatinine Ratio 16 Glucose Level 105 mg/dL Calcium Level 8.7 mg/dL Total Bilirubin 0.4 mg/dL Aspartate Amino Transf (AST/SGOT) 12 U/L Alanine Aminotransferase (ALT/SGPT) 17 U/L Alkaline Phosphatase 57 U/L Total Protein 7.2 g/dL Albumin 4.2 g/dL Albumin/Globulin Ratio 1.4 Salicylates Level < 2.8 mg/dL Salicylate Last Dose Date Unk Salicylate Last Dose Time Unk Acetaminophen Level < 2.0 mcg/mL Acetaminophen Last Dose Date Unk Acetaminophen Last Dose Time Unk Ethyl Alcohol Level < 10 mg/dL Urine Collection Type Unknown Urine Color Yellow Urine Clarity Clear Urine pH 6.0 Urine Specific [place] >=1.030 Urine Protein Neg Urine Glucose (UA) Neg mg/dL Urine Ketones (Stick) Trace mg/dL Urine Blood Neg Urine Nitrite Neg Urine Bilirubin Neg Urine Urobilinogen Dipstick 1.0 mg/dL Urine Leukocyte Esterase Neg Urine RBC 0 /HPF Urine WBC 0 /HPF Urine Squamous Epithelial Cells Occ /LPF Urine Bacteria Few /HPF Urine Mucus Mod /LPF Urine Sperm Present /HPF Urine Opiates Screen Neg Urine Methadone Screen Neg Urine Barbiturates Neg Urine Phencyclidine Screen Neg Urine Amphetamine/Methamphetamine Neg Urine Benzodiazepines Screen Neg Urine Cocaine Screen Neg Urine Cannabinoids Screen Neg Urine Ethyl Alcohol Neg SARS-CoV-2 Antigen (Rapid) Negative EKG EKG EKG ordered and interpreted by myself at 1515 hrs. as sinus rhythm at 70 bpm, unremarkable intervals, no axis deviation, T wave inversion noted in lead III otherwise no obvious ischemic findings, no STEMI Radiology/Procedures Radiology/Procedures [] Heart Score C/O Chest Pain: No HEART Score for Chest Pain: HEART Score for Chest Pain Response (Comments) Value History Slighlty/Non-Suspicious 0 ECG Normal 0 Age < 45 0 Risk Factors No Risk Factors 0 Total 0 Risk Factors: Risk Factors: DM, Current or recent (<one month) smoker, HTN, HLP, family history of CAD, obesity. Risk Scores: Risk Factors: DM, Current or recent (<one month) smoker, HTN, HLP, family history of CAD, obesity. Course & Med Decision Making Course & Med Decision Making ABCs unremarkable. HPI concerning for active suicidal ideation. Physical exam and ER work-up unremarkable, medically cleared from my standpoint Patient evaluated by qualified mental health professional who reviewed any appropriate supporting documentation and previous available medical records and feels patient meets criteria for admission to mental health facility. Patient ultimately accepted to [facility]. I have updated him on this decision for transfer and he remained voluntary and willing for transfer via EMS. All questions and concerns addressed prior to hospital transfer Dragon Disclaimer Dragon Disclaimer This electronic medical record was generated, in whole or in part, using a voice recognition dictation system. Departure Departure: Impression: Primary Impression: Suicidal ideation Disposition: [address] [place] [address] ([facility] Admitting Physician: Other (VIOLETA TURK) Condition: STABLE Referrals: LUCIANO SQUIRES (PCP) CHARLENE WHITE DO Sep 22, 2020 14:45
[2020-09-22 15:08] LABS: BASO # 0.1 x10^3/uL (0.0-0.2); BASO % 1 % (0-3); EOS # 0.4 x10^3/uL (0.0-0.7); EOS % 5 % (0-3); HEMATOCRIT 45.3 % (39.0-53.0); HEMOGLOBIN 15.5 g/dL (13.0-17.5); LYMPH % 26 % (24-48); MEAN CORPUSCULAR HEMOGLOBIN 31 pg (25-35); MEAN CORPUSCULAR HGB CONC 34 g/dL (31-37); MEAN CORPUSCULAR VOLUME 91 fL (79-100); MONO # 0.4 x10^3/uL (0.0-1.1); MONO % 5 % (0-9); NEUT # 4.6 x10^3uL (1.8-7.7); NEUT % 63 % (31-73); PLATELET COUNT 159 x10^3/uL (140-400); RED BLOOD COUNT 4.99 x10^6/uL (4.30-5.70); RED CELL DISTRIBUTION WIDTH 13.2 % (11.5-14.5); WHITE BLOOD COUNT 7.4 x10^3/uL (4.0-11.0)
[2020-09-22 15:30] LABS: CALCIUM 8.7 mg/dL (8.5-10.1); CREATININE 1.1 mg/dL (0.7-1.3); GFR 104.3; POTASSIUM 3.8 mmol/L (3.5-5.1)
[2020-09-22 15:36] LABS: ALBUMIN 4.2 g/dL (3.4-5.0); ALBUMIN/GLOBULIN RATIO 1.4 (1.0-1.7); TOTAL BILIRUBIN 0.4 mg/dL (0.2-1.0); TOTAL PROTEIN 7.2 g/dL (6.4-8.2)
[2020-09-22 15:44] LABS: ACETAMIN < 2.0 mcg/mL (10-30); ETHANOL < 10 mg/dL (0-10); SALIC < 2.8 mg/dL (2.8-20.0)
--- NOTE | 2020-09-22 15:48 | EKG ---
[address] [address] Test Date: 2020-09-22 Test Time: 15:11:30 Pat Name: CRISTIAN ALVARADO Department: Room: Gender: M Science Interpreter: PABLO : 2000 Requested By: CHARLENE WHITE Order Number: [id number] Reading MD: Measurements Intervals [place] Rate: 70 P: 51 LA: 150 QRS: 37 QRSD: 74 T: 30 QT: 342 QTc: 372 Interpretive Statements SINUS ARRHYTHMIA T ABNORMALITY IN ANTEROLATERAL LEADS ABNORMAL ECG RI6.02 No previous ECG available for comparison
[2020-09-22 15:57] LABS: BARBITURATES NEG (NEG); BENZODIAZEPINES NEG (NEG); CANNABINOIDS NEG (NEG); COCAINE NEG (NEG); METHADONE NEG (NEG); OPIATES NEG (NEG); PHENCYCLIDINE NEG (NEG)
[2020-09-22 16:01] LABS: AMPHETAMINE/METHAMPHETAMINE NEG (NEG)
[2020-09-22 16:13] LABS: BILIRUBIN,URINE NEG (NEG); CLARITY,URINE CLEAR; COLOR,URINE YELLOW; GLUCOSE,URINE NEG (NEG); NITRITE,URINE NEG (NEG)
[2020-09-22 16:17] LABS: BACTERIA,URINE FEW /HPF (0-FEW); RBC,URINE 0 /HPF (0-2); SPERM,URINE PRESENT /HPF; SQUAMOUS EPITHELIAL CELL,UR OCC /LPF; WBC,URINE 0 /HPF (0-4)
[2020-09-22 21:00] VITALS: BP 114/64
== END 2020-09-22 21:15 ==
LOC: ER 14:33
DX: R45.851 Suicidal ideations (principal); F41.9 Anxiety disorder, unspecified; Z59.0 Homelessness; Z20.822 Contact with and (suspected) exposure to COVID-19
CPT/HCPCS: 80053; 80307; 80329; 81001; 85025; 87426; 93005; 99285; C9803; G0480; U0003